=== PATIENT | female | born 1945 | race Caucasian/White ===

== ENCOUNTER 2024-05-15 20:09 | Inpatient (IN) | payer MEDICARE, BC, SELFPAY ==
[2024-05-15 15:57] VITALS: BP 114/81
--- NOTE | 2024-05-15 16:36 | ED.GENMED ---
History of Present Illness
General
Chief Complaint: Skin Problem
Source: patient
Exam Limitations: none
Time Seen by Provider: 05/15/24 16:17
History of Present Illness
History of Present Illness:
See MDM
Past History
Past History
ED Past Medical History: None (MS) and HTN
ED Past Surgical History: None
Social History
Tobacco: Non-smoker
Alcohol: None
Phy Exam
Physical Exam
Physical Exam:
See MDM
Course
Orders/Labs/Results
Orders:
Orders
05/15/24 16:30
Hips, Bilat 2 View W/AP Pelvis [CR Hips ELAN w/wo Pel 2 Vw] Urgent
Comment:
Reason For Exam: b/l hip wound and pain
Include a pelvis x-ray?: No
05/15/24 16:33
Morphine Sulfate 2 mg IV NOW STA
Piperacillin/Tazo 3.375 Gram [Zosyn] 3.375 gram in 50 ml IV NOW
Vancomycin 1 Gram/200 ml [Vancocin] 1 gram in 200 ml IV NOW
05/15/24 16:41
Complete Blood Count/With Diff Urgent
Wound Culture [Wound/Abscess/Other Culture] Urgent
ZEEKIEL Source: Ulcer
Specimen Description:
Date Specimen was Collected: 05/15/24
Time Specimen was Collected: 16:36
Comment: Left hip
05/15/24 18:20
Comprehensive Metabolic Panel Urgent
Abnormal Lab Results
05/15/24 05/15/24
16:41 18:20
WBC 12.2 H 10^3/uL
(4.8-10.8)
RBC 3.81 L 10^6/uL
(4.20-5.40)
Hgb 10.9 L g/dL
(12.0-16.0)
Hct 34.4 L %
(37.0-47.0)
MCHC 31.7 L g/dL
(33.0-37.0)
Plt Count 609 H 10^3/uL
(130-400)
Abs Immat Gran (auto) 0.1 H 10^3/uL
(0-0.05)
Absolute Neuts (auto) 9.8 H 10^3/uL
(1.4-6.5)
Absolute Lymphs (auto) 0.9 L 10^3/uL
(1.2-3.4)
Absolute Monos (auto) 1.2 H 10^3/uL
(0.1-0.6)
Neutrophils % 80.6 H %
(42.2-75.2)
Lymphocytes % 7.7 L %
(20.5-51.1)
Monocytes % 9.5 H %
(1.7-9.3)
Chloride 95 L mmol/L
(98-107)
Carbon Dioxide 36 H mmol/L
(22-30)
BUN 37 H mg/dl
(7-17)
Glucose 122 H mg/dl
(70-99)
Albumin 3.2 L g/dl
(3.5-5.0)
05/15/24 16:41
05/15/24 18:20
Vital Signs
Initial and Last Documented VS:
Initial Vital Signs
Temp Pulse Resp BP Pulse Ox
97.5 F 109 18 114/81 97
05/15/24 15:57 05/15/24 15:57 05/15/24 15:57 05/15/24 15:57 05/15/24 15:57
Last Documented Vital Signs
Temp Pulse Resp BP Pulse Ox
97.7 F 100 19 110/72 90
05/15/24 16:34 05/15/24 18:30 05/15/24 18:30 05/15/24 18:05 05/15/24 18:01
MDM/Problems Addressed
Differential Diagnosis Includes:
HPI and MDM Narrative:
78-year-old female presenting for evaluation of infected pressure ulcers to both hips. Patient is bedbound due to MS. She lives at home with nursing care. The visiting wound nurse evaluated the wounds and indicated that the wounds are getting
worse. The pain is becoming uncontrolled. On exam, she has bilateral pressure ulcers to both hips. The left hip ulceration is cavernous and has thick discharge. The right hip ulceration is larger but more shallow
Given the concern for underlying infection, will start vancomycin and Zosyn. Will give dose of morphine and obtain x-ray to rule out any evidence of osteomyelitis
I did notice rhonchorous breath sounds and daughter states that she has chronic aspiration
Physical exam
General: weak, frail and cachectic
HEENT: protecting airway
Neck: appears supple
CV: No evidence of cyanosis
Resp: No accessory muscle use. Rhonchorous breath sounds throughout
Abd: Non-distended
Extremities: Bilateral ulcerations to both hips with surrounding erythema and discharge
Neuro: alert
Psych: Flat affect
Skin: Intact
Problems Addressed including Acute and Chronic Conditions affecting care:
1. Hip ulcer
Acuity: acute
Prognosis: unstable
Details: Will start antibiotics and obtain x-rays
Updates
Pain is improved on reassessment. X-ray without obvious osteomyelitis.
Differential Diagnosis (but not limited to): Osteomyelitis, pressure ulcer
Testing considered: Blood cultures but she is afebrile
Drug therapy (if applicable): OTC meds, please see d/c instruction regarding Rx drugs
Amount and/or Complexity of Data Reviewed
Clinical info obtained from: Patient. Daughter at bedside states that this is somewhat chronic issue that has worsened recently
External data reviewed: N/A
Labs I independently reviewed (but not limited to): Leukocytosis
Radiology: X-ray independently reviewed: No obvious osteomyelitis noted on bilateral hip x-ray
Pulse Ox: not hypoxic
EKG independently reviewed: N/A
Animal Sticker: N/A
Critical Care: N/A
Risk of Complication:
Social Determinants of health: Good social support
Discussed with other providers: Hospitalist
Escalation of Care includes Admit/Obs: Given the acute on chronic change of the hip ulcerations, will start antibiotics and admit
Occasional wrong word or 'sound a like' substitutions may have occurred due to the inherent limitations of voice recognition software. Read the chart carefully and recognize, using context, where substitutions have occurred.
*Critical Care Note
Total Time (30-74mins, 75-104mins- exclusive of procedures): Not Applicable
ED Attending Note
-
Portions of this chart may have been created with voice recognition software.� Occasional wrong word or��sound alike� substitutions may have occurred due to the inherent limitations of voice recognition software.
Discharge Plan
Departure
Patient Disposition: Admit
Date of Disposition: 05/15/24
Time of Disposition: 19:18
Admit to: Med/Surg
Presentation/result/management discussed w/ accepting MD/DO: Hospitalist
Discharge Problem:
Decubitus ulcer of hip
Prescriptions:
No Action
sennosides [senna] 8.6 mg Tablet
17.2 mg PO BID
ipratropium-albuterol 0.5 mg-3 mg(2.5 mg base)/3 mL Solution For Nebulization
3 ml INHALATION R DAILY
calcium carbonate [Calcium 600] 600 mg calcium (1,500 mg) Tablet
600 mg PO DAILY
amlodipine 10 mg Tablet
10 mg PO DAILY
ibuprofen [Advil] 200 mg Tablet
400 mg PO Q6HPRN PRN (Reason: mild pain)
Santyl 250 unit/gram Ointment
1 applic TOPICAL BID
lorazepam 1 mg Tablet
1 mg PO HS
Patient Comments:
05/15/24: last filled 02/07/24 for 90 tablets
fluoxetine 20 mg Capsule
20 mg PO DAILY
Referrals:
PRIVATE,PHYSICIAN [Family Provider] -
Interventions
Interventions:
*Risk Screen - Suicide Last Done: 05/15/24 15:57
*General Assessment Last Done: 05/15/24 15:57
*Neglect/Abuse Screening Last Done: 05/15/24 15:57
ED- Fall Risk Assessment Last Done: 05/15/24 18:01
*ED COVID-19 Vaccine History Last Done: 05/15/24 15:57
ED-Skin Assessment Last Done: 05/15/24 18:01
Discharge Date and Time
Print Language: MALTESE
[2024-05-15 16:45] VITALS: BMI 12.9
[2024-05-15] MEDS: MORPHINE SULFATE 2 MG IV (16:50)
[2024-05-15] MEDS: ZOSYN 50 IV (16:54)
[2024-05-15 17:28] LABS: % Basophils 0.6 % (0-2); % Eosinophils 1.2 % (0-6); % Immature Granulocytes 0.4 % (0-0.5); % Lymphocytes 7.7 % (20.5-51.1); % Monocytes 9.5 % (1.7-9.3); % Neutrophils 80.6 % (42.2-75.2); Absolute Basophils 0.1 10^3/uL (0-0.2); Absolute Eosinophils 0.2 10^3/uL (0-0.7); Absolute Immature Granulocytes 0.1 10^3/uL (0-0.05); Absolute Lymphocytes 0.9 10^3/uL (1.2-3.4); Absolute Monocytes 1.2 10^3/uL (0.1-0.6); Absolute Neutrophils 9.8 10^3/uL (1.4-6.5); Hematocrit 34.4 % (37.0-47.0); Hemoglobin 10.9 g/dL (12.0-16.0); Mean Corp Hgb Conc. 31.7 g/dL (33.0-37.0); Mean Corpuscular Hgb 28.6 pg (27.0-31.0); Mean Corpuscular Volume 90.3 fL (81.0-99.0); Mean Platelet Volume 9.5 fL (7.4-10.4); Nucleated Red Blood Cells % 0 %; Platelet Count 609 10^3/uL (130-400); Red Blood Cell Count 3.81 10^6/uL (4.20-5.40); White Blood Cell Count 12.2 10^3/uL (4.8-10.8)
[2024-05-15] MEDS: VANCOCIN 200 IV (17:47)
[2024-05-15 18:05] VITALS: BP 110/72
[2024-05-15 18:39] LABS: ALT (SGPT) 20 U/L (0-35); AST (SGOT) 27 U/L (14-36); Albumin 3.2 g/dl (3.5-5.0); Alkaline Phosphatase 102 U/L (38-126); Blood Urea Nitrogen 37 mg/dl (7-17); Calcium 9.8 mg/dl (8.4-10.2); Carbon Dioxide 36 mmol/L (22-30); Chloride 95 mmol/L (98-107); Estimated Creatinine Clearance 43 ml/min; Glucose 122 mg/dl (70-99); Potassium 4.1 mmol/L (3.5-5.1); Sodium 140 mmol/L (135-145); Total Bilirubin 0.3 mg/dl (0.2-1.3); Total Protein 6.7 g/dl (6.3-8.2); eGFR > 60.00
[2024-05-15 20:00] VITALS: BP 101/56
--- NOTE | 2024-05-15 20:00 | HPS.HSE ---
Family Physician
-
Family Physician: PHYSICIAN PRIVATE
Chief Complaint
-
infected sacral wounds
History of Present Illness
78-year-old female past medical history of multiple sclerosis bedbound at baseline, sacral decubitus ulcers, hypertension, emphysema, history of aspiration, active smoker, presenting for infected sacral decubitus ulcers. Patient has 2 ulcers on her
sacrum 1 on the left and 1 on the right which she has had for few months have gotten progressively worse over the past 2 weeks with drainage of foul-smelling purulent drainage. No fevers or chills.
Patient still smokes around half a pack of cigarettes a day. No alcohol use.
Medical History
Past Medical History
Past Medical History: Reports Other ( multiple sclerosis bedbound at baseline, sacral decubitus ulcers, hypertension, emphysema, history of aspiration, active smoker, )
Past Surgical History: Reports Gynocological
Social History
Tobacco: Smoker
Alcohol: None
Drug: None
Family History
Family History: Not pertinent
Allergies / Home Medications
Allergies reflects when Allergies were last updated in [facility].
Home Medications with original date entered in [facility]
Allergy/Medication List:
Allergies
Allergy/AdvReac Type Severity Reaction Status Date / Time
No Known Allergies Allergy Unverified 05/15/24 16:00
Home Medications
amlodipine 10 mg tablet 10 mg PO DAILY 05/15/24
calcium carbonate (Calcium 600) 600 mg PO DAILY 05/15/24
collagenase clostridium histo. 250 unit/gram topical ointment (Santyl) 1 applic topical BID wounds 05/15/24
fluoxetine 20 mg capsule 20 mg PO DAILY 05/15/24
ibuprofen 200 mg tablet (Advil) 400 mg PO Q6HPRN PRN mild pain 05/15/24
ipratropium 0.5 mg-albuterol 3 mg (2.5 mg base)/3 mL nebulization soln 3 ml inhalation R DAILY 05/15/24
lorazepam 1 mg tablet 1 mg PO HS 05/15/24
sennosides 8.6 mg tablet (senna) 17.2 mg PO BID 05/15/24
Review of Systems
-
History Source: Patient
A 12 point ROS was completed and negative except as noted: Yes
Constitutional: Reports No Symptoms
EENT: Reports No Symptoms
Respiratory: Reports No Symptoms
Cardiac: Reports No Symptoms
Abdomen/GI: Reports No Symptoms
: Reports No Symptoms
Musculoskeletal: Reports No Symptoms
Skin: Reports See HPI
Neurological: Reports No Symptoms
Endocrine: Reports No Symptoms
Hematologic/Lymphatic: Reports No Symptoms
Psych: Reports No Symptoms
Physical Exam
Vital Signs
Vital Signs
Temp Pulse Resp BP Pulse Ox
97.7 F 100 19 110/72 90
05/15/24 16:34 05/15/24 18:30 05/15/24 18:30 05/15/24 18:05 05/15/24 18:01
Physical Exam
General: Well Developed, Well Nourished and No Apparent Distress
HEENT: NormoCephalic, Moist mucous membranes and Atraumatic
Respiratory: Clear
Cardiac: S1/S2 and Regular Rhythm; No Murmur or Rub
GI: Soft, Non Tender, Non Distended and Normal Bowel Sounds; No Organomegaly
Rectal: Deferred by Provider
Musculoskeletal: No Clubbing, No Cyanosis and No Edema
Skin: Other (sacral decubitus ulcers ); No Rash
Neuro: Nonfocal/grossly intact
Laboratory Results
-
05/15/24 16:41
05/15/24 18:20
Laboratory Results
Total Bilirubin 0.3 mg/dl (0.2-1.3) 05/15/24 18:20
AST 27 U/L (14-36) 05/15/24 18:20
ALT 20 U/L (0-35) 05/15/24 18:20
Alkaline Phosphatase 102 U/L (38-126) 05/15/24 18:20
Data Reviewed
-
Lab Data: Labs Reviewed by me
Old Records: Reviewed
Impression/Plan
-
IMPRESSION:
PLAN:
# Infected sacral decubitus wounds
-Blood culture pending
-Wound care consulted
-Vancomycin/cefepime
-May require surgical debridement
Multiple sclerosis bedbound at baseline
Essential hypertension
COPD
-Continue DuoNebs
Active smoker
-Nicotine patch
History of aspiration with chronic cough
Anxiety/depression
-Continue fluoxetine
-Continue Ativan
DNR/DNI
DVT prophylaxis�heparin
Regular diet
[2024-05-15 21:31] VITALS: BP 102/66
[2024-05-15 21:32] VITALS: BMI 12.4
[2024-05-15 21:37] VITALS: BP 101/70
--- NOTE | 2024-05-15 21:56 | PHA.VAN.IN ---
Assessment
- Assessment
Renal Function: Unknown baseline
Concomitant Antimicrobials: CEFEPIME
- Previous Dosing Experience
Previous Regimen: NONE
AUC Dosing Plan
- Dosing Variables
Dosing Weight (kg): 54.7
Dosing CrCl (ml/min): 69
Vd coefficient (L/kg): 0.7
- Empiric Dosing
Initial / Loading Dose: 1GM
Maintenance Regimen: 500MG IV Q12H
Estimated AUC (mcg*h/mL): 437
Estimated Peak (mcg*h/mL): 25
Estimated Trough (mcg/ml): 12.7
Estimated Half Life (H): 11.2
Pharmacokinetics Vancomycin I
- -
Patient Age: 78
Patient Sex: Female
Vancomycin Day #: 1
Indication: Skin And Soft Tissue (SACRAL WOUNDS)
Requesting Provider: KYLER
Height / Weight:
Height 5 ft 4 in
Actual Weight 32.659 kg
IBW in k.7
- Vital Signs / Lab Results
Temp Pulse Resp BP Pulse Ox
98.2 F 90 18 101/70 99
05/15/24 21:31 05/15/24 21:37 05/15/24 21:37 05/15/24 21:37 05/15/24 21:37
Lab Results - Hematology
05/15/24
16:41
WBC 12.2 H
Lab Results - Chemistry
05/15/24 05/15/24 05/15/24
16:41 17:46 18:20
BUN Cancelled Cancelled 37 H
Creatinine Cancelled Cancelled 0.6
Estimated Creat Clear Cancelled Cancelled 43
Albumin Cancelled Cancelled 3.2 L
Microbiology Results
05/15/24 16:41 Gram Stain - Preliminary
Ulcer
[2024-05-15] MEDS: SENOKOT 17.2 MG PO (22:11)
[2024-05-15] MEDS: MOTRIN 400 MG PO (22:11)
[2024-05-15] MEDS: HEPARIN 5000 UNITS SC (22:12)
[2024-05-15] MEDS: STERILE WATER FOR INJECTION 10 ML IV (22:12)
[2024-05-15] MEDS: MAXIPIME 1000 MG IV (22:12)
[2024-05-15] MEDS: SANTYL OINTMENT 1 APPLIC TOPICAL (23:09)
[2024-05-15] MEDS: ATIVAN 1 MG PO (23:09)
[2024-05-15 23:26] VITALS: BP 103/61
--- NOTE | 2024-05-16 00:51 | PTCARENOTE ---
Patient states that she lives at home with live-in caregiver; patient reports that her caregiver will be moving out soon; patient has multiple sclerosis and is bedbound at baseline; patient reports that her in February and that he
had been her caregiver.
[2024-05-16] MEDS: VANCOCIN HCL 500 MG 100 IV ×2 (06:18→19:08)
[2024-05-16] MEDS: MOTRIN 400 MG PO ×3 (06:38→20:00)
[2024-05-16 07:00] VITALS: BP 91/62
[2024-05-16] MEDS: DUONEB 3 ML INH (07:46)
[2024-05-16 07:47] VITALS: BP 100/53
[2024-05-16 08:17] LABS: % Basophils 0.7 % (0-2); % Eosinophils 2.4 % (0-6); % Immature Granulocytes 0.6 % (0-0.5); % Lymphocytes 13.1 % (20.5-51.1); % Monocytes 8.5 % (1.7-9.3); % Neutrophils 74.7 % (42.2-75.2); Absolute Basophils 0.1 10^3/uL (0-0.2); Absolute Eosinophils 0.2 10^3/uL (0-0.7); Absolute Immature Granulocytes 0.1 10^3/uL (0-0.05); Absolute Lymphocytes 1.2 10^3/uL (1.2-3.4); Absolute Monocytes 0.8 10^3/uL (0.1-0.6); Absolute Neutrophils 6.7 10^3/uL (1.4-6.5); Hematocrit 30.1 % (37.0-47.0); Hemoglobin 9.8 g/dL (12.0-16.0); Mean Corp Hgb Conc. 32.6 g/dL (33.0-37.0); Mean Corpuscular Hgb 29.1 pg (27.0-31.0); Mean Corpuscular Volume 89.3 fL (81.0-99.0); Mean Platelet Volume 9.5 fL (7.4-10.4); Nucleated Red Blood Cells % 0 %; Platelet Count 559 10^3/uL (130-400); Red Blood Cell Count 3.37 10^6/uL (4.20-5.40); Red Cell Dist. Width 12.9 % (11.5-14.5)
[2024-05-16] MEDS: PROZAC 20 MG PO (09:07)
[2024-05-16] MEDS: HEPARIN 5000 UNITS SC ×2 (09:08→19:55)
[2024-05-16] MEDS: SENOKOT 17.2 MG PO ×2 (09:08→19:55)
[2024-05-16 09:10] LABS: ALT (SGPT) 17 U/L (0-35); AST (SGOT) 23 U/L (14-36); Albumin 3.1 g/dl (3.5-5.0); Alkaline Phosphatase 100 U/L (38-126); Blood Urea Nitrogen 29 mg/dl (7-17); Calcium 9.8 mg/dl (8.4-10.2); Carbon Dioxide 29 mmol/L (22-30); Chloride 97 mmol/L (98-107); Estimated Creatinine Clearance 41 ml/min; Glucose 96 mg/dl (70-99); Potassium 3.7 mmol/L (3.5-5.1); Sodium 138 mmol/L (135-145); Total Bilirubin 0.3 mg/dl (0.2-1.3); Total Protein 6.4 g/dl (6.3-8.2); eGFR > 60.00
[2024-05-16] MEDS: NICODERM TRANSDERMAL 7 MG TRANSDERM (09:10)
[2024-05-16] MEDS: SANTYL OINTMENT 1 APPLIC TOPICAL ×2 (09:12→19:54)
--- NOTE | 2024-05-16 09:14 | WOUNDNOTE ---
L HIP (undermines up to 5cm)
--- NOTE | 2024-05-16 09:15 | WOUNDNOTE ---
[facility] RN note: Patient admitted with infected hip pressure injuries. Patient lives alone and is current with VN. Patient stated her passed recently. Patient stated she sleeps in a double bed at home.
See H&P for complete history.
PMH: MS, bedbound, HTN, aspiration, COPD, smoker, cachexia.
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 R hip covered with brown/black eschar detached along distal lateral edge. +Necrotic odor. L hip pink/yellow slough undermines up to 5cm.
Hip Xrays negative for OM. +Local erythema around wounds. Sacral small stage 1 pressure injury. R lateral ankle blanchable red. R medial knee blanchable mild red. Patient's Le's contracted.
Appetite: poor.
Pressure redistribution devices in place: Static air overlay mattress. Air chair cushions.
Plan: Bilateral hip dressings changed. Protective silicone border foam applied to sacrum and R lateral ankle. Foot Waffle boots applied. Patient incontinent of urine. Louann care given and patient turned to R semi side lying position with help from
SHANNEN Hinds. Foot Waffle boots applied. Pillow between knees. Patient at risk for non healing wounds, additional pressure injuries d/t poor nutrition, LE contracture and cachexia.
Updated and confirmed orders with Dr. Ernst who plans to consult general surgeon to evaluate for wound debridement. Discussed with ALEX Thao.
Care plan to be updated and will follow as needed.
Note to case management of equipment requested for discharge: Hospital bed with air mattress. Discussed with TERRY Campoverde.
Recommend follow up at wound care center upon discharge.
[2024-05-16] MEDS: OSCAL CAL 500 500 MG PO (09:16)
[2024-05-16] MEDS: STERILE WATER FOR INJECTION 10 ML IV ×2 (09:17→21:17)
[2024-05-16] MEDS: MAXIPIME 1000 MG IV ×2 (09:17→21:16)
--- NOTE | 2024-05-16 09:27 | PHA.VAN.FU ---
Vancomycin Assessment / Plan
- Assessment
Renal Function: Stable (BUN trending down)
WBC's are: WNL
In the past 24 hrs, patient has been: Afebrile
Concomitant Antimicrobials: cefepime
- Dosing Plan
Continue: Vanc 500mg Q12H
Dosing Comments: dosing based off IBW for BMI < 20
- Monitoring Plan
No level(s) ordered at this time: consider levels in next few days
- Follow Up
Pharmacy will continue to follow.
Vancomycin Follow UP
- -
Patient Age: 78
Patient Sex: Female
Vancomycin Day #: 2
Indication: Skin And Soft Tissue
Requesting Provider: Dr. Nicolas
Pertinent Antimicrobial Allergies:
NKDA
Height / Weight:
Height 5 ft 4 in
Actual Weight 32.659 kg
IBW in k.7
Pertinent Past Medical History: BMI ~12.4, MS (bedbound)
- Vital Signs / Lab Results
Temp Pulse Resp BP Pulse Ox
97.4 F 87 18 100/53 91
05/16/24 07:47 05/16/24 07:53 05/16/24 07:53 05/16/24 07:47 05/16/24 07:53
Lab Results - Hematology
05/15/24 05/16/24
16:41 06:41
WBC 12.2 H 9.0
Lab Results - Chemistry
05/15/24 05/15/24 05/15/24
16:41 17:46 18:20
BUN Cancelled Cancelled 37 H
Creatinine Cancelled Cancelled 0.6
Estimated Creat Clear Cancelled Cancelled 43
Albumin Cancelled Cancelled 3.2 L
05/16/24
06:41
BUN 29 H
Creatinine 0.6
Estimated Creat Clear 41
Albumin 3.1 L
Microbiology Results
05/15/24 16:41 Gram Stain - Preliminary
Ulcer
[2024-05-16] MEDS: NORVASC 10 MG PO (09:51)
[2024-05-16 10:57] VITALS: BP 105/62
--- NOTE | 2024-05-16 11:09 | W.PN.HOSP.TC ---
Today's Communication/Plan
-
May need debridement
IV abx
Await culture data
dietary eval
Assessment / Plan
Assessment / Plan
# Hip/sacral decubitus wounds suspected infection
-Blood culture pending
-Vancomycin/cefepime
-Surgery eval if debridement required
-wound care following
-leukocytosis resolved.
-ID for abx management as pt with MS/Chronic wound
Multiple sclerosis bedbound at baseline
-not on any termination clerk medication
-PT/OT
Essential hypertension
-Cont norvasc. BP controlled.
COPD
-Continue DuoNebs
Active smoker
-Nicotine patch
-counseled on cessation and significant delay in wound healing if continues to smoke.
History of aspiration with chronic cough
Anxiety/depression
-Continue fluoxetine
-Continue Ativan
Protein calorie malnutrition likely due to chronic illness
-Dietary eval.
-liberalize diet
DNR/DNI
DVT prophylaxis�heparin
Anticipated Discharge: > 48 hours
Subjective/Interval History
-
Date of Service: May 16, 2024
denies back or hip pain
continues to smoke
Objective Data
-
Labs:
Laboratory Results
05/16/24
06:41
WBC 9.0
Hgb 9.8 L
Hct 30.1 L
Plt Count 559 H
Sodium 138
Potassium 3.7
Chloride 97 L
Carbon Dioxide 29
BUN 29 H
Creatinine 0.6
Glucose 96
Calcium 9.8
Total Bilirubin 0.3
AST 23
ALT 17
Alkaline Phosphatase 100
Vital Signs:
Vital Signs
Temp Pulse Resp BP Pulse Ox
97.4 F 90 16 105/62 99
05/16/24 10:57 05/16/24 10:57 05/16/24 10:57 05/16/24 10:57 05/16/24 10:57
Physical Exam
-
General: Appears Chronically Ill and Cachectic
HEENT: Normocephalic, Atraumatic and Moist Mucous Membranes
Respiratory: Clear to Auscultation
Cardiac: Regular Rhythm and S1/S2; Negative Murmur, Rub or Gallop
GI: Soft, Nontender, Nondistended and Normal Bowel Sounds; Negative Organomegaly
Rectal: Deferred by Provider
Musculoskeletal: No Clubbing, No Cyanosis and No Edema
Skin: Other (hip wound ulcer noted ); Negative Rash
Neuro: Awake, No Motor Deficits and Nonfocal/Grossly Intact
Psych: Calm
Data Reviewed
-
Total Time Spent with Patient (in minutes): 56
--- NOTE | 2024-05-16 11:40 | CON.GS ---
Consultation
-
Requesting Provider: parvez
Performing Provider: adolfo
Reason for Consultation: pressure ulcers to bilateral hips
Medical History
-
Chief Complaint: pressure wounds
History of Present Illness:
78F bedbound 2/2 MS with pressure wounds to bilateral hips in the greater trochanter area. She normally lives at home with home VN. VN felt the wounds were progressing and had concern for infection. The patient reports increasing pain a/w the
wounds. She is a daily smoker. She denies f/c/n/v. She is presently comfortable, eating micronesian toast.
Past Medical History
Past Medical History: Other (as per HPI, and hypertension, emphysema, history of aspiration)
Past Surgical History: Reviewed & Noncontributory
Social History
Tobacco: Smoker
Alcohol: None
Drug: None
Family History
Family History: Reviewed & Noncontributory
Allergies / Home Medications
Allergy/AdvReac Type Severity Reaction Status Date / Time
No Known Allergies Allergy Unverified 05/15/24 16:00
�Medication �Instructions �Recorded �Confirmed �Type
amlodipine 10 mg tablet 10 mg PO DAILY 05/15/24 05/15/24 History
calcium carbonate (Calcium 600) 600 mg PO DAILY 05/15/24 05/15/24 History
collagenase clostridium histo. 250 1 applic topical BID wounds 05/15/24 05/15/24 History
unit/gram topical ointment (Santyl)
fluoxetine 20 mg capsule 20 mg PO DAILY 05/15/24 05/15/24 History
ibuprofen 200 mg tablet (Advil) 400 mg PO Q6HPRN PRN mild pain 05/15/24 05/15/24 History
ipratropium 0.5 mg-albuterol 3 mg 3 ml inhalation R DAILY 05/15/24 05/15/24 History
(2.5 mg base)/3 mL nebulization
soln
lorazepam 1 mg tablet 1 mg PO HS 05/15/24 05/15/24 History
sennosides 8.6 mg tablet (senna) 17.2 mg PO BID 05/15/24 05/15/24 History
Review of Systems
-
A 10 point review of systems was completed, and was negative except as per HPI.
Physical Exam
Vital Signs
Temp Pulse Resp BP Pulse Ox
97.4 F 90 16 105/62 99
05/16/24 10:57 05/16/24 10:57 05/16/24 10:57 05/16/24 10:57 05/16/24 10:57
05/15/24 05/16/24 05/17/24
06:59 06:59 06:59
Actual Weight 32.659 kg
Body Mass Index (BMI) 12.4
Lab Results
05/16/24 06:41
05/16/24 06:41
WBC 9.0 10^3/uL (4.8-10.8) 05/16/24 06:41
Hgb 9.8 g/dL (12.0-16.0) L 05/16/24 06:41
Hct 30.1 % (37.0-47.0) L 05/16/24 06:41
Plt Count 559 10^3/uL (130-400) H 05/16/24 06:41
Abs Immat Gran (auto) 0.1 10^3/uL (0-0.05) H 05/16/24 06:41
Neutrophils % 74.7 % (42.2-75.2) 05/16/24 06:41
Physical Exam
General: Other (frail, cachectic)
Skin: Other (left hip pressure wound examined, tunneling and necrotic muscle noted with mild foul odor, there is tenderness, no purulence though the wound was recently cleaned and dressed; right hip exam deferred 2/2 pt position and eating)
Neuro: AO x 3
Psych: Calm
Data Reviewed
-
Radiology: Image Personally Visualized and interpreted and Report Reviewed by me
Medical Tests (Nuc Med, Echo etc): Other (wound care images reviewed, right hip ulcer with apparent eschar)
Assessment / Plan
-
78F with bilateral greater trochanteric pressure wounds
Right hip wound with eschar, left hip wound with tunneling, necrosis
AFVSS, leukocytosis and mild tachycardia present on on admit have resolved
XR without evidence of osteo
Pt will benefit from OR debridement of her wounds.
Tentative plan for OR tomorrow.
NPO at midnight.
Agree with cont IV abx
All other care as per primary team.
Risk factors: cachexia, frailty, bedbound status, COPD, smoking
[2024-05-16 12:51] VITALS: BMI 12.4
--- NOTE | 2024-05-16 13:14 | W.PN.UPDATE ---
Update Note
Progress Note Update
I personally performed a history and physical exam of the patient and discussed management with the resident. I reviewed the resident's separately documented note and agree with the documented findings and plan of care HPI/CC with the following
additions/corrections:
CC: infected sacral wounds
HPI: Ms Soto is a 78 year old female with MS bedbound at baseline with known sacral decubiti, emphysema with active smoking, profound cachexia presenting here for a several month history of two ulcers on the sacrum 1 on the left and one of the
right with progressive increase in size, purulent drainage and increasing pain. No fevers or chills
Not currently on treatment for MS.
Since arrival here she has been afebrile, bp overall stable, wbc initially 12.2 now 9.0, hgb 9.8, plt 559, L shift was initially present now resolved, eos are present, na 138, cr 0.6, t bili 0.3, ast 23, alt 17, alk phos 100,
Past Medical History
multiple sclerosis bedbound at baseline, sacral decubitus ulcers, hypertension, emphysema, history of aspiration, active smoker
Past Surgical History: R THR
Social History
Tobacco: Smoker
Alcohol: None
Drug: None
Family History
Family History: Not pertinent
Allergies
NKDA
Home Medications: reviewed
ROS: as documented by resident
Vital Signs
Temp Pulse Resp BP Pulse Ox
97.7 F 100 19 110/72 90
05/15/24 16:34 05/15/24 18:30 05/15/24 18:30 05/15/24 18:05 05/15/24 18:01
Physical Exam
General: d No Apparent Distress
Respiratory: Clear to auscultation BL
Cardiac: S1/S2 and Regular Rhythm; No Murmur or Rub
GI: Soft, Non Tender, Non Distended and Normal Bowel Sounds
Musculoskeletal: No Edema
Skin: R hip wound with eschar, L hip wound with purulence, granulation tissue
Labs: reviewed, as per HPI
Assessment And Plan
Chronic Sacral pressure wounds: R hip wound with eschar, L hip wound with purulence, granulation tissue
S/p R THR
MS with Functional paraplegia
Empyhsema
Profound Cachexia
- wound cx: gram stain many gpcs, many gnr, few gpr; culture proteus thus far - expect polymicrobial results
- follow up OR note post debridement, ideally aerobic
- CXR
- agree with vanc/cefepime
- add metronidazole
- patient profoundly cachectic with significant risk for ongoing nonhealing; additionally given her inability to consistently offload the wounds, she is unlikely to be a candidate for reconstruction or ostomy
Recommend hospice given frailty, profound cachexia, chronic/progressive wounds and history of aspiration
AW
--- NOTE | 2024-05-16 13:20 | CON.ID ---
Consultation
-
Date/Time Consultation Requested: 05/16/2024, 11:16 AM.
Date/Time Consultation Performed: 05/16/2024, 1:20 PM
Requesting Provider: Gamaliel Ernst MD
Performing Provider: Tayler Wheeler for Adelita Zaidi MD
Reason for Consultation: Sacral decubitus ulcer-infected.
Chief Complaint / Past History
Chief Complaint
Foul-smelling discharge and worsening pain of decubitus ulcers.
History of Present Illness
28-year-old female with PMHx significant for multiple sclerosis, bedbound for few years, decubitus ulcers, hypertension, emphysema, history of aspiration, active smoker presents to the hospital with chief complaint of progressively worsening pain
and drainage of foul-smelling purulent discharge from the sacral decubitus ulcers. She complains of being tired, loss of appetite and 8/10 pain. Denies having fever, chills, chest pain, heart racing, loss of consciousness.
Of note she has a visiting wound care nurse that is wound care dressing 3-4 times a week and a 24-hour home health aide. Wound care nurse recommended patient to be taken to the hospital due to the worsening pain and foul-smelling purulent discharge
over the last 2 weeks from her sacral decubitus ulcers. 2 ulcers on bilateral hips were noted by wound care which were photographed. Upon arrival to the hospital she was afebrile with stable blood pressure no tachycardia and no hypotension,
leukocytosis with WBC count at 12 .2 with left shift, now 9 with resolving left shift, normocytic anemia and reactive thrombocytosis.
Patient still smokes around half a pack of cigarettes a day (was smoking about 1 pack a day until few months ago). No alcohol use.
Past History
Past Medical History: Other (Multiple sclerosis bedbound at baseline, sacral decubitus ulcers, hypertension, emphysema, history of aspiration, active smoker, )
Past Surgical History: Other (Gynecological surgery, right hip ORIF.)
Allergy History:
No Known Allergies Allergy (Unverified 05/15/24 16:00)
Medications Reviewed: Yes
Current Antibiotics:
Cefepime 1000 mg IV every 12 hourly
Vancomycin 500 mg IV every 12 hourly.
Social History
Tobacco: Smoker
Alcohol: Occasional
Drug: None
Personal:
Living: With Family
Employment: Retired
Family History
Family History: Not Pertinent
Review of Systems
Review of Systems
General: Change in Appetite and Other (fatigue)
Cardiovascular: Negative Chest Pain or Dyspnea
Respiratory: Negative Dyspnea or Cough
Gasteroenterology: Weight Loss
Genital / Urological: Negative Dysuria
Endocrine: Weight Change and Fatigue
Neurological: Negative Headache or Dizziness
Vital Signs
Temp Pulse Resp BP Pulse Ox
97.4 F 90 16 105/62 99
05/16/24 10:57 05/16/24 10:57 05/16/24 10:57 05/16/24 10:57 05/16/24 10:57
Physical Exam
Physical Exam
Constitutional: Cachetic (Severe cachexia with contractures.)
Cardiovascular: Regular Rate and S1/S2; Negative Murmur, Rub or Gallop
Pulmonary: Clear; Negative Wheezes, Rales or Rhonchi
Gastrointestinal: Soft, Non Tender and Normal Bowel Sounds
Extremities: Negative Edema
Skin: Warm and Ulcers (Left hip wound-stage IV. About 7 into 7 cm ulcer with surrounding erythema, undermined edges, mild granulation tissue, and obvious purulence noted.Right hip wound-unstageable, about 6 into 8 cm, eschar present.)
Neurological: AO x 3
Psychological: Calm
Lab / Diagnostic Study Results
05/16/24 06:41
05/16/24 06:41
Abs Immat Gran (auto) 0.1 10^3/uL (0-0.05) H 05/16/24 06:41
Absolute Neuts (auto) 6.7 10^3/uL (1.4-6.5) H 05/16/24 06:41
Absolute Lymphs (auto) 1.2 10^3/uL (1.2-3.4) 05/16/24 06:41
Absolute Monos (auto) 0.8 10^3/uL (0.1-0.6) H 05/16/24 06:41
Absolute Basos (auto) 0.1 10^3/uL (0-0.2) 05/16/24 06:41
Immature Gran % 0.6 % (0-0.5) H 05/16/24 06:41
Neutrophils % 74.7 % (42.2-75.2) 05/16/24 06:41
Lymphocytes % 13.1 % (20.5-51.1) L 05/16/24 06:41
Monocytes % 8.5 % (1.7-9.3) 05/16/24 06:41
Eosinophils % 2.4 % (0-6) 05/16/24 06:41
Basophils % 0.7 % (0-2) 05/16/24 06:41
Microbiology Results
Micro:
05/15/24 16:41 Wound Culture - Preliminary
Ulcer Proteus species
Gram Stain - Preliminary
05/16/24 04:08 MRSA Screen - Pending
Nose
X-ray hip-05/11/2024-
1. Large soft tissue wounds lateral to the greater trochanters of both proximal femurs.
2. No radiographic evidence for acute osteomyelitis.
3. Previous ORIF of a right proximal femoral fracture with a short stem gamma nail.
4. Diffuse bone demineralization.
5. Severe right-sided facet joint arthrosis at L4/L5 and L5/S1.
Gram stain from wound culture-few gram-positive cocci, many gram-negative rods, few gram-positive rods.
Assessment / Plan
Assessment-
Multiple sclerosis with paraplegia-not on any treatment.
Chronic bilateral sacral pressure wounds-right hip with eschar and left hip with purulence. S/p ORIF of the right hip.
Cachexia-BMI 12.4
COPD/emphysema.
Wound cultures polymicrobial-predominantly Proteus,few gram-positive cocci, many gram-negative rods, few gram-positive rods.
Plan-
Surgery consulted and on board, planning for wound debridement tomorrow.
Currently patient is on Cefepime 1000 mg IV every 12 hourly and vancomycin 500 mg IV every 12 hourly. Add metronidazole for anaerobic coverage.
Will plan for an MRI based on the OR wound debridement note by surgeon.
Given her ORIF in the hip, profound cachexia, inability to offload the pressure on wounds from her underlying paraplegia she is not a great candidate for reconstruction or osteomyelitis management hence hospice recommendation should be explored.
Care Review
Plan reviewed with: Physician
[2024-05-16 15:00] VITALS: BP 87/59
--- NOTE | 2024-05-16 16:11 | CM ---
Patient seen at bedside.
Dx: infected sacral decubitus ulcers
PMH: MS, HTN, emphysema, +smoker
IA completed. CM called daughter to obtain further information and left message.
States she lives at home alone that her . Andree MARTIN was current prior to hospitalization along with caregivers.
Patient is bedbound
CM await call from daughter Catalina Reeves -[phone] to discuss plan.
PLAN: OR tomorrow for debridement
[2024-05-16 17:03] VITALS: BP 107/67
[2024-05-16] MEDS: FLAGYL 500 MG 100 IV (17:09)
[2024-05-16] MEDS: DAKIN'S SOLUTION 0.125% 1/4 STRENGTH 473 ML TOPICAL (19:54)
[2024-05-16] MEDS: ATIVAN 1 MG PO (21:16)
[2024-05-16] MEDS: TYLENOL 1000 MG PO (22:32)
[2024-05-16 23:43] VITALS: BP 92/57
[2024-05-17] VITALS (15 sets, daily range): BP systolic 86–140; BP diastolic 55–85
[2024-05-17] MEDS: FLAGYL 500 MG 100 IV ×3 (01:20→17:30)
[2024-05-17] MEDS: VANCOCIN HCL 500 MG 100 IV ×2 (05:24→18:34)
[2024-05-17 05:32] LABS: % Basophils 0.4 % (0-2); % Eosinophils 1.6 % (0-6); % Immature Granulocytes 0.5 % (0-0.5); % Monocytes 7.6 % (1.7-9.3); % Neutrophils 80.9 % (42.2-75.2); Absolute Basophils 0.1 10^3/uL (0-0.2); Absolute Eosinophils 0.2 10^3/uL (0-0.7); Absolute Immature Granulocytes 0.1 10^3/uL (0-0.05); Absolute Lymphocytes 1.1 10^3/uL (1.2-3.4); Absolute Monocytes 0.9 10^3/uL (0.1-0.6); Absolute Neutrophils 9.4 10^3/uL (1.4-6.5); Hematocrit 28.6 % (37.0-47.0); Hemoglobin 9.2 g/dL (12.0-16.0); Mean Corp Hgb Conc. 32.2 g/dL (33.0-37.0); Mean Corpuscular Hgb 27.8 pg (27.0-31.0); Mean Corpuscular Volume 86.4 fL (81.0-99.0); Mean Platelet Volume 9.5 fL (7.4-10.4); Nucleated Red Blood Cells % 0 %; Platelet Count 559 10^3/uL (130-400); Red Blood Cell Count 3.31 10^6/uL (4.20-5.40); Red Cell Dist. Width 12.9 % (11.5-14.5); White Blood Cell Count 11.7 10^3/uL (4.8-10.8)
[2024-05-17 05:55] LABS: Blood Urea Nitrogen 25 mg/dl (7-17); Calcium 9.5 mg/dl (8.4-10.2); Carbon Dioxide 31 mmol/L (22-30); Chloride 99 mmol/L (98-107); Estimated Creatinine Clearance 41 ml/min; Glucose 80 mg/dl (70-99); Potassium 3.5 mmol/L (3.5-5.1); Sodium 139 mmol/L (135-145); eGFR > 60.00
[2024-05-17] MEDS: DUONEB 3 ML INH (07:20)
--- NOTE | 2024-05-17 07:48 | W.PN.HOSP.TC ---
Today's Communication/Plan
-
OR for debridement
Broad spectrum abx
pain control
Appreciate GS/ID recs
Assessment / Plan
Assessment / Plan
# Chronic Hip/sacral decubitus wound suspected infected
-Blood culture neg so far
-wound culture with proteus.
-Vancomycin/cefepime and flagyl
-Surgery eval -plan for debridement today.
-wound care following
-Pain control.
-ID for abx management as pt with MS/Chronic wound
Multiple sclerosis bedbound at baseline/paraplegic
-not on any halfway medication
-PT/OT
Essential hypertension
-Cont norvasc. BP controlled.
COPD
-Continue DuoNebs
Active smoker
-Nicotine patch
-counseled on cessation and significant delay in wound healing if continues to smoke.
History of aspiration with chronic cough
Anxiety/depression
-Continue fluoxetine
-Continue Ativan
Protein calorie malnutrition likely due to chronic illness
-Dietary eval.
-liberalize diet
DNR/DNI
DVT prophylaxis�heparin
Dispo-probably will require SNF on discharge.
Anticipated Discharge: > 48 hours
Subjective/Interval History
-
Date of Service: May 17, 2024
states of sacral pain
Objective Data
-
Labs:
Laboratory Results
05/17/24
04:34
WBC 11.7 H
Hgb 9.2 L
Hct 28.6 L
Plt Count 559 H
Sodium 139
Potassium 3.5
Chloride 99
Carbon Dioxide 31 H
BUN 25 H
Creatinine 0.6
Glucose 80
Calcium 9.5
Vital Signs:
Vital Signs
Temp Pulse Resp BP Pulse Ox
97 F 69 16 120/73 97
05/17/24 07:00 05/17/24 07:23 05/17/24 07:23 05/17/24 07:00 05/17/24 07:23
I&O
05/16/24 05/17/24 05/18/24
06:59 06:59 06:59
Intake Total 1360 / 1360
Balance 1360 / 1360
Physical Exam
-
General: Appears Chronically Ill and Cachectic
HEENT: Normocephalic, Atraumatic and Moist Mucous Membranes
Respiratory: Clear to Auscultation
Cardiac: Regular Rhythm and S1/S2; Negative Murmur, Rub or Gallop
GI: Soft, Nontender, Nondistended and Normal Bowel Sounds; Negative Organomegaly
Rectal: Deferred by Provider
Musculoskeletal: No Clubbing, No Cyanosis and No Edema
Skin: Other (hip wound ulcer noted ); Negative Rash
Neuro: Awake, No Motor Deficits and Nonfocal/Grossly Intact
Psych: Calm
--- NOTE | 2024-05-17 08:15 | W.PN.SURGUPD ---
Surgical Update
Surgical Update
pt seen in followup this AM
confirmed plan for OR today with pt - on add on schedule
debridement b/l ischial decubitus ulcers. anticipated procedure reviewed in detail with pt including operative technique, alternative tx options, benefits and risks such as but not limited to bleeding requiring transfusion, infectious related
complications and wound healing. any of the patients concerns or questions were fully addressed and informed consent was obtained.
--- NOTE | 2024-05-17 08:29 | W.PN.ID1 ---
Addendum entered and electronically signed by Adelita Claudio MD 05/17/24 17:03:
Non- billable note
I was not able to evaluate the patient, she was in the OR during multiple visits to the floor. I reviewed the resident�s note and agree with findings and plan as documented in the resident�s note with the following additions/corrections:
SOAP
S: no events overnight - for the OR today
O:
vitals reviewed, stable
Physical Exam
Rounded on patient three times including checking PACU - not available
Labs:
wbc 11.7
hgb 9.2
plt 559
L shift noted
cr 0.6
wound cx: prelim: proteus
MRSA screen: negative
CXR: my read: hyperinflated lungs, no nodules or infiltrates
Assessment And Plan
Chronic Sacral pressure wounds: R hip wound with eschar, L hip wound with purulence, granulation tissue
S/p R THR
MS with Functional paraplegia
Empyhsema
Profound Cachexia
- wound cx: gram stain many gpcs, many gnr, few gpr; culture proteus thus far - expect polymicrobial results
- follow up OR note post debridement, ideally aerobic
- CXR
- agree with vanc/cefepime/metronidazole
- patient profoundly cachectic with significant risk for ongoing nonhealing; additionally given her inability to consistently offload the wounds, she is unlikely to be a candidate for reconstruction or ostomy
Recommend hospice given frailty, profound cachexia, chronic/progressive wounds and history of aspiration; alternatively, outpatient follow up with plastic surgery - again, doubt she is a surgical candidate
Nonbillable note - was unable to locate patient during rounds
AW
Original Note:
Date of Service
Date of Service: May 17, 2024
Today's Communication
Wound debridement in the p.m.
Continue cefepime, vancomycin, metronidazole.
Assessment / Plan
Assessment-
Objective findings-
Leukocytosis with left mqgcp-ejplwxsgih-35.2-9.0 (05/16/2024)-11.7 (05/17/2024).
Hemoglobin-9.2, normocytic anemia, reactive thrombocytosis-platelet count 559, BMP-within normal limits
Multiple sclerosis with paraplegia-not on any treatment.
Chronic bilateral sacral pressure wounds-right hip with eschar and left hip with purulence. S/p ORIF of the right hip.
Cachexia-BMI 12.4
COPD/emphysema.
Wound cultures polymicrobial-predominantly Proteus,few gram-positive cocci, many gram-negative rods, few gram-positive rods.
Plan-
Surgery consulted and on board, wound debridement today in the p.m.
Currently patient is on Cefepime 1000 mg IV every 12 hourly-day 2 and vancomycin 500 mg IV every 12 hourly-day 1.metronidazole 500 mg 3 times daily-day 1 for anaerobic coverage.
Will plan for an MRI based on the OR wound debridement note by surgeon.
Given her ORIF in the hip, profound cachexia, inability to offload the pressure on wounds from her underlying paraplegia she is not a great candidate for reconstruction or osteomyelitis management hence hospice recommendation should be explored.
Chief Complaint
-: Other (foul smelling purulent draining pressure ulcers X 2 weeks.)
Subjective / Review of Systems
Tired, no appetite.
Review of Systems: No Fever, No Chills, No Headache, No Chest Pain, No Palpitations, No Abdominal Pain, No Nausea and No Dysuria
Vital Signs / Physical Exam
Vital Signs
Vital Signs
Temp Pulse Resp BP Pulse Ox
97 F 69 16 120/73 97
05/17/24 07:00 05/17/24 07:23 05/17/24 07:23 05/17/24 07:00 05/17/24 07:23
Physical Exam
Constitutional: Cachetic
Cardiovascular: Regular Rate and S1/S2; Negative Murmur, Rub or Gallop
Pulmonary: Clear; Negative Wheezes, Rales or Rhonchi
Gastrointestinal: Soft, Non Tender, Non Distended and Normal Bowel Sounds
Extremities: Negative Edema
Skin: Warm and Ulcers (Stage IV left hip wound, unstageable right hip wound.)
Neurological: AO x 3
Psychological: Calm
Objective Data
Lab Data
Lab Results
05/17/24 04:34
05/17/24 04:34
Estimated Creat Clear 41 ml/min 05/17/24 04:34
Total Bilirubin 0.3 mg/dl (0.2-1.3) 05/16/24 06:41
AST 23 U/L (14-36) 05/16/24 06:41
ALT 17 U/L (0-35) 05/16/24 06:41
Alkaline Phosphatase 100 U/L (38-126) 05/16/24 06:41
Most recent labs reviewed.
Microbiology: Report Reviewed
Micro Results:
05/15/24 16:41 Wound Culture - Preliminary
Ulcer Proteus species
Gram Stain - Preliminary
05/16/24 04:08 MRSA Screen - Pending
Nose
X-ray hip-05/11/2024-
1. Large soft tissue wounds lateral to the greater trochanters of both proximal femurs.
2. No radiographic evidence for acute osteomyelitis.
3. Previous ORIF of a right proximal femoral fracture with a short stem gamma nail.
4. Diffuse bone demineralization.
5. Severe right-sided facet joint arthrosis at L4/L5 and L5/S1.
Gram stain from wound culture-few gram-positive cocci, many gram-negative rods, few gram-positive rods.
[2024-05-17] MEDS: HEPARIN SC (08:50)
[2024-05-17] MEDS: NORVASC PO (08:51)
[2024-05-17] MEDS: SENOKOT PO (08:51)
[2024-05-17] MEDS: OSCAL CAL 500 PO (08:51)
[2024-05-17] MEDS: PROZAC PO (08:51)
[2024-05-17] MEDS: NICODERM TRANSDERMAL 7 MG TRANSDERM (08:52)
[2024-05-17] MEDS: DAKIN'S SOLUTION 0.125% 1/4 STRENGTH 473 ML TOPICAL (08:52)
[2024-05-17] MEDS: SANTYL OINTMENT 1 APPLIC TOPICAL (08:52)
[2024-05-17] MEDS: STERILE WATER FOR INJECTION 10 ML IV ×2 (09:04→21:09)
[2024-05-17] MEDS: MAXIPIME 1000 MG IV ×2 (09:04→21:09)
[2024-05-17] MEDS: MORPHINE SULFATE 1 MG IV (09:15)
--- NOTE | 2024-05-17 11:13 | PN.CDI ---
CDI
- -
CDI:
Physician Documentation Request
Admit Date: 05/15/24 20:09
Dear Doctor Klever,
Please review the following and provide your response in the progress notes.
Clinical Indicators:
Pt admitted with Hip/sacral decubitus wounds suspected infection.
05/16 Progress note: 'Protein calorie malnutrition likely due to chronic illness.'
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 Pt unsure of weight history. During visit RD able to visulize apparent ribs, temporal wasting, fat loss over tricepts, orbital area sunken in.... Skin: unstageable R hip, stage 4 L
hip. CBW: 72 lbs BMI 12.4 underweight range, 05/15....
With < 75% estimated needs > 1 month and observed muscle and fat wasting pt meets AND/ASPEN criteria for severe protein calorie malnutrition of chronic illness.'
If possible, please provide in your progress notes, additional specificity regarding the severity of the malnutrition:
Severe
Other (please specify)
[place] Criteria (ACP Hospitalist 2017)
2 or more criteria must be present for either
non severe or severe malnutrition
Note that the criteria differs related to the
presence of an acute or chronic illness
Chronic Illness
Energy Intake Non Severe: <75% for >1 month
Severe: <75% for >1 month
Weight Loss Non Severe: 5% over 1 month
7.5% over 3 months
10% over 6 months
20% over 1 year
Severe: >5% over 1 month
>7.5% over 3 months
>10% over 6 months
>20% over 1 year
Body Fat Non Severe: Mild Loss
Severe: Severe Loss
Muscle Mass Non Severe: Mild Loss
Severe: Severe Loss
Additional criteria that can be used to Determine if Mild or Moderate Malnutrition (Merck Manual 2018)
Use of terms such as suspected, likely, concern for, or probable (associated with a specific diagnosis that is being evaluated, monitored, or treated as if it exists) are acceptable and can be coded in the inpatient setting, when documented at the
time of discharge.
Thank you,
Tierra Ritter RN, BSN
CDI Specialist
Available via [employer] text
Please use your independent medical judgment in providing your response.
[2024-05-17] MEDS: MORPHINE SULFATE 3 MG IV (11:41)
--- NOTE | 2024-05-17 12:37 | CM ---
Addendum entered by Amrita Diana 05/17/24 14:23:
Financial forms for [place] [facility] [place] given to daughter
Original Note:
Spoke with daughter Catalina. Patient going to OR today for debridement
States patient lives alone, had 14/03 caregivers & recently passed.
Discussed options of placement for rehab to daughter states potentially skilled nursing care.
Referral to [facility]
PLAN: OR today, SNF
--- NOTE | 2024-05-17 14:00 | PTCARENOTE ---
Patient sent to OR for b/l hip debridement. Report given to RN. Patient updated at bedside.
--- NOTE | 2024-05-17 14:52 | W.SUR.PREOP ---
Pre-Operative Surgical Note
-
I have examined this patient prior to the performance of the scheduled procedure.
The patient's condition is unchanged from the time of the current History and
Physical and the patient is able to undergo the scheduled procedure.
--- NOTE | 2024-05-17 15:09 | PHA.VAN.FU ---
Vancomycin Assessment / Plan
- Assessment
Renal Function: Stable
WBC's are: Trending Up
In the past 24 hrs, patient has been: Afebrile
Concomitant Antimicrobials: cefepime, metronidazole
- Dosing Plan
Continue: Vanc 500mg Q12H based on IBW
- Monitoring Plan
Trough Level: 05/18 05:30
Patient for OR this evening - will hold off on obtaining peak/trough as may be difficult to ensure optimal timing of peak
Will obtain trough in AM to ensure regimen non-toxic as patient unlikely to follow population PK
However, since patient unlikely to follow population PK with BMI, will likely eventually need peak/trough to calculate patient-specific PK and more accurately assess regimen
- Follow Up
Pharmacy will continue to follow.
Vancomycin Follow UP
- -
Patient Age: 78
Patient Sex: Female
Vancomycin Day #: 3
Indication: Skin And Soft Tissue
Requesting Provider: Dr. Nicolas / González
Pertinent Antimicrobial Allergies:
NKDA
Height / Weight:
Height 5 ft 4 in
Actual Weight 32.659 kg
IBW in k.7
Pertinent Past Medical History: BMI ~12.4, MS (bedbound)
- Vital Signs / Lab Results
Temp Pulse Resp BP Pulse Ox
97 F 69 16 140/85 97
05/17/24 07:00 05/17/24 07:23 05/17/24 07:23 05/17/24 11:50 05/17/24 07:23
Lab Results - Hematology
05/15/24 05/16/24 05/17/24
16:41 06:41 04:34
WBC 12.2 H 9.0 11.7 H
Lab Results - Chemistry
05/15/24 05/15/24 05/15/24
16:41 17:46 18:20
BUN Cancelled Cancelled 37 H
Creatinine Cancelled Cancelled 0.6
Estimated Creat Clear Cancelled Cancelled 43
Albumin Cancelled Cancelled 3.2 L
05/16/24 05/17/24
06:41 04:34
BUN 29 H 25 H
Creatinine 0.6 0.6
Estimated Creat Clear 41 41
Albumin 3.1 L
Microbiology Results
05/15/24 16:41 Wound Culture - Preliminary
Ulcer Proteus mirabilis
Gram Stain - Preliminary
05/16/24 04:08 MRSA Screen - Final
Nose No Methicillin Resistant Staphylococcus aureus isolated.
--- NOTE | 2024-05-17 16:32 | W.IMMPOSTOP ---
Addendum entered and electronically signed by Leeroy Bellamy MD 05/17/24 16:54:
#[id number]
Original Note:
Surgical Immed Post Op Note
-
Primary Surgeon: Josesito
Assisting Surgeon: None
Pre-op Diagnosis: b/l greater trochanteric pressure ulcers
Post-op Diagnosis: stage IV b/l greater trochanteric pressure ulcers
Procedure Performed: sharp excisional debridement b/l greater trochanteric pressure ulcers
Anesthesia Type: GETA
Specimen / Cultures: none
Estimated Blood Loss: 8mL
Complications: none immediate
Operative Findings: Stage IV left greater trochanteric pressure ulcer with exposed tendon and humerus as well as surrounding musculature. 3 cm x 2 cm x 5 cm undermining and 1 cm deep
Stage IV right greater trochanteric pressure ulcer with exposed fascia, muscle/tendon. 6.2 x 7.5 cm and 0.5 cm deep. No undermining.
Sharp excisional debridement with electrocautery and 15 blade at both sites to remove majority of necrotic tissue/eschar/fibrous buildup.
Plan: Local wound care going forward. Given patient's advanced MS and comorbidities unfortunately do not anticipate healing potential and would therefore not further debride again even if there was recurrent deterioration of wound as is anticipated.
--- NOTE | 2024-05-17 17:56 | PTCARENOTE ---
Report received from OR. Patient back in room. VSS. Dinner tray ordered.
[2024-05-17 20:45] LABS: Hepatitis C Antibody Negative (Negative)
[2024-05-17] MEDS: SENOKOT 17.2 MG PO (21:00)
[2024-05-17] MEDS: HEPARIN 5000 UNITS SC (21:08)
[2024-05-17] MEDS: ATIVAN 1 MG PO (21:09)
[2024-05-17] MEDS: DESENEX/MITRAZOL/ZEASORB 1 APPLIC TOPICAL (21:22)
[2024-05-17] MEDS: DAKIN'S SOLUTION 0.125% 1/4 STRENGTH TOPICAL (21:44)
[2024-05-17] MEDS: SANTYL OINTMENT TOPICAL (21:44)
[2024-05-18] VITALS (8 sets, daily range): BP systolic 92–133; BP diastolic 57–77; PULSE 84–88; O2SAT 88–95
[2024-05-18] MEDS: FLAGYL 500 MG 100 IV ×3 (01:23→18:25)
[2024-05-18] MEDS: MORPHINE SULFATE 2 MG IV (03:59)
[2024-05-18 07:08] LABS: % Basophils 0.1 % (0-2); % Immature Granulocytes 0.6 % (0-0.5); % Lymphocytes 4.4 % (20.5-51.1); % Monocytes 3.5 % (1.7-9.3); % Neutrophils 91.4 % (42.2-75.2); Absolute Immature Granulocytes 0.1 10^3/uL (0-0.05); Absolute Lymphocytes 0.6 10^3/uL (1.2-3.4); Absolute Monocytes 0.5 10^3/uL (0.1-0.6); Absolute Neutrophils 13.2 10^3/uL (1.4-6.5); Hematocrit 27.2 % (37.0-47.0); Mean Corp Hgb Conc. 33.1 g/dL (33.0-37.0); Mean Corpuscular Hgb 29.5 pg (27.0-31.0); Mean Corpuscular Volume 89.2 fL (81.0-99.0); Mean Platelet Volume 9.5 fL (7.4-10.4); Nucleated Red Blood Cells % 0 %; Platelet Count 530 10^3/uL (130-400); Red Blood Cell Count 3.05 10^6/uL (4.20-5.40); Red Cell Dist. Width 12.8 % (11.5-14.5); White Blood Cell Count 14.4 10^3/uL (4.8-10.8)
[2024-05-18 07:27] LABS: Vancomycin Trough 12.1 ug/ml (5-20)
[2024-05-18 07:31] LABS: Blood Urea Nitrogen 20 mg/dl (7-17); Calcium 9.2 mg/dl (8.4-10.2); Carbon Dioxide 31 mmol/L (22-30); Chloride 100 mmol/L (98-107); Estimated Creatinine Clearance 41 ml/min; Glucose 101 mg/dl (70-99); Potassium 3.9 mmol/L (3.5-5.1); Sodium 139 mmol/L (135-145); eGFR > 60.00
[2024-05-18] MEDS: VANCOCIN HCL 500 MG 100 IV ×2 (07:33→20:31)
[2024-05-18] MEDS: DUONEB 3 ML INH (07:35)
--- NOTE | 2024-05-18 08:02 | PHA.VAN.FU ---
Vancomycin Assessment / Plan
- Assessment
Renal Function: Stable
WBC's are: Trending Up
In the past 24 hrs, patient has been: Afebrile
Concomitant Antimicrobials: cefepime, metronidazole
- Assessment - Trough Based Monitoring
Trough Value: 12.1
Level Today was: Appropriate
Level Comments: drawn ~11.5H after 4th maintenance dose
- Dosing Plan
Continue: Vanc 500mg Q12H
- Monitoring Plan
No level(s) ordered at this time: consider obtaining peak/trough in next few days
Trough appropriate to continue present dosing
Patient does not follow population PK due to BMI < 20
Patient may have additional accumulation
Consider repeat level with peak in next few days
- Follow Up
Pharmacy will continue to follow.
Vancomycin Follow UP
- -
Patient Age: 78
Patient Sex: Female
Vancomycin Day #: 4
Indication: Skin And Soft Tissue
Requesting Provider: Dr. Nicolas / González
Pertinent Antimicrobial Allergies:
NKDA
Height / Weight:
Height 5 ft 4 in
Actual Weight 32.659 kg
IBW in k.7
Pertinent Past Medical History: BMI ~12.4, MS (bedbound)
- Vital Signs / Lab Results
Temp Pulse Resp BP Pulse Ox
97.6 F 88 12 133/77 90
05/18/24 03:23 05/18/24 07:42 05/18/24 07:42 05/18/24 03:23 05/18/24 07:42
Lab Results - Hematology
05/15/24 05/16/24 05/17/24
16:41 06:41 04:34
WBC 12.2 H 9.0 11.7 H
05/18/24
05:50
WBC 14.4 H
Lab Results - Chemistry
05/15/24 05/15/24 05/15/24
16:41 17:46 18:20
BUN Cancelled Cancelled 37 H
Creatinine Cancelled Cancelled 0.6
Estimated Creat Clear Cancelled Cancelled 43
Albumin Cancelled Cancelled 3.2 L
05/16/24 05/17/24 05/18/24
06:41 04:34 05:50
BUN 29 H 25 H 20 H
Creatinine 0.6 0.6 0.6
Estimated Creat Clear 41 41 41
Albumin 3.1 L
Microbiology Results
05/15/24 16:41 Wound Culture - Preliminary
Ulcer Proteus mirabilis
Gram Stain - Preliminary
05/16/24 04:08 MRSA Screen - Final
Nose No Methicillin Resistant Staphylococcus aureus isolated.
Therapeutic Drug Monitoring
Vancomycin Trough 12.1 ug/ml (5-20) 05/18/24 05:53
--- NOTE | 2024-05-18 08:27 | W.PN.ID1 ---
Addendum entered and electronically signed by Adelita Claudio MD 05/18/24 17:49:
I saw and evaluated the patient. I reviewed the resident�s note and agree with findings and plan as documented in the resident�s note.
SOAP
S: taken to the OR last night
No other events
O:
vitals reviewed, stable
Physical Exam
Constitutional: severe cachexia, nad
Cardiovascular: Regular Rate
Pulmonary: no increased work of breathing
Gastrointestinal: Non Distended
Neurological: Awake and Alert
Skin: deferred dressing take down
Psychological: Calm
Labs:
wbc 14.4
hgb 9.0
plt 530
L shift increased
cr 0.6
wound cx: prelim: proteus
MRSA screen: negative
CXR: my read: hyperinflated lungs, no nodules or infiltrates
Assessment And Plan
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
Left: exposed tendon and humerus and muscle
Right: exposed fascia, muscle, tender
note h/o ORIF on the right - however, no exposed hardwear at this time
S/p R THR
MS with Functional paraplegia
Empyhsema
Profound Cachexia
- wound cx: gram stain many gpcs, many gnr, few gpr; culture proteus thus far - expect polymicrobial results
- agree with vanc/cefepime/metronidazole for now
- patient profoundly cachectic with significant risk for ongoing nonhealing; additionally given her inability to consistently offload the wounds, she is unlikely to be a candidate for reconstruction or ostomy
Recommend hospice given frailty, profound cachexia, chronic/progressive wounds and history of aspiration; alternatively, outpatient follow up with plastic surgery - again, doubt she is a surgical candidate. Note that general surgery shares my
concerns for nonhealing
Original Note:
Date of Service
Date of Service: May 18, 2024
Today's Communication
Continue Zosyn.
Hospice conversations with family.
Assessment / Plan
Assessment-
Objective findings-
Leukocytosis with left bblnw-yzviuoivhs-42.2-9.0 (05/16/2024)-11.7 (05/17/2024).
Hemoglobin-9.2, normocytic anemia, reactive thrombocytosis-platelet count 559, BMP-within normal limits
Multiple sclerosis with paraplegia-not on any treatment.
Chronic bilateral sacral pressure wounds-right hip with eschar and left hip with purulence. S/p ORIF of the right hip.
Cachexia-BMI 12.4
COPD/emphysema.
Wound cultures polymicrobial-predominantly Proteus,few gram-positive cocci, many gram-negative rods, few gram-positive rods.
Operative findings-stage IV left greater trochanteric pressure ulcer with exposed tendon and humerus. Stage IV right greater trochanteric pressure ulcer with exposed fascia muscle and tendon.
Plan-
Surgery consulted and on board, wound debridement today in the p.m yesterday. Possible osteomyelitis on the left side, hardware metal present on the right side. Will have hospice discussions with the family. If family wants to pursue with further
evaluation and treatment, will consider getting MRI of the hips.
Currently patient is on Cefepime 1000 mg IV every 12 hourly-day 3 and vancomycin 500 mg IV every 12 hourly-day 2.metronidazole 500 mg 3 times daily-day 2 for anaerobic coverage. Discontinue vancomycin.
Will plan for an MRI based on the OR wound debridement note by surgeon.
Given her ORIF in the hip, profound cachexia, inability to offload the pressure on wounds from her underlying paraplegia she is not a great candidate for reconstruction or osteomyelitis management hence hospice recommendation should be explored.
Chief Complaint
-: Other (foul smelling purulent draining pressure ulcers X 2 weeks.)
Subjective / Review of Systems
Patient states that she feels much better than yesterday. She is awake and alert, denies being in pain or discomfort.
Review of Systems: No Fever, No Chills, No Headache, Cough (Baseline, productive.), No Chest Pain, No Palpitations, No Nausea and No Dysuria
Vital Signs / Physical Exam
Vital Signs
Vital Signs
Temp Pulse Resp BP Pulse Ox
97.7 F 88 12 101/60 90
05/18/24 07:10 05/18/24 07:42 05/18/24 07:42 05/18/24 07:10 05/18/24 07:42
Physical Exam
Constitutional: Comfortable and Cachetic (Severe)
Cardiovascular: Regular Rate and S1/S2; Negative Murmur, Rub or Gallop
Pulmonary: Clear; Negative Wheezes, Rales or Rhonchi
Gastrointestinal: Soft, Non Tender and Non Distended
Extremities: Negative Edema
Neurological: Awake and Alert
Psychological: Calm
Objective Data
Lab Data
Lab Results
05/18/24 05:50
05/18/24 05:50
Estimated Creat Clear 41 ml/min 05/18/24 05:50
Total Bilirubin 0.3 mg/dl (0.2-1.3) 05/16/24 06:41
AST 23 U/L (14-36) 05/16/24 06:41
ALT 17 U/L (0-35) 05/16/24 06:41
Alkaline Phosphatase 100 U/L (38-126) 05/16/24 06:41
Most recent labs reviewed.
Chest X-Ray: Image Reviewed and Report Reviewed
Microbiology: Report Reviewed
Micro Results:
05/15/24 16:41 Wound Culture - Preliminary
Ulcer Proteus mirabilis
Gram Stain - Preliminary
05/16/24 04:08 MRSA Screen - Final
Nose No Methicillin Resistant Staphylococcus aureus isolated.
X-ray hip-05/11/2024-
1. Large soft tissue wounds lateral to the greater trochanters of both proximal femurs.
2. No radiographic evidence for acute osteomyelitis.
3. Previous ORIF of a right proximal femoral fracture with a short stem gamma nail.
4. Diffuse bone demineralization.
5. Severe right-sided facet joint arthrosis at L4/L5 and L5/S1.
Gram stain from wound culture-few gram-positive cocci, many gram-negative rods, few gram-positive rods.
Other: Image Reviewed
[2024-05-18] MEDS: OSCAL CAL 500 500 MG PO (08:37)
[2024-05-18] MEDS: PROZAC 20 MG PO (08:38)
[2024-05-18] MEDS: SANTYL OINTMENT 1 APPLIC TOPICAL ×2 (08:39→20:37)
[2024-05-18] MEDS: SENOKOT 17.2 MG PO ×2 (08:39→20:38)
[2024-05-18] MEDS: HEPARIN 5000 UNITS SC ×2 (08:40→20:38)
[2024-05-18] MEDS: NICODERM TRANSDERMAL 7 MG TRANSDERM (08:40)
[2024-05-18] MEDS: NORVASC 10 MG PO (08:41)
[2024-05-18] MEDS: DAKIN'S SOLUTION 0.125% 1/4 STRENGTH 1 ML TOPICAL (08:43)
--- NOTE | 2024-05-18 11:31 | PTOTSP ---
SPEECH THERAPY SWALLOW EVALUATION:
Patient exhibits clinical signs of oropharyngeal dysphagia, likely chronic related to Multiple Sclerosis, COPD, and generalized weakness/deconditioning, and acutely exacerbated by recent anesthesia s/p debridement of b/l pressure ulcers. Patient
with history of aspiration/choking, though unclear on details. Patient currently exhibiting signs of aspiration with thin liquids and soft solids; Endorsed globus sensation with soft-solids. Patient endorsed history of VSE though unclear of details
of when/where or recommendations. Patient remains at HIGH RISK for aspiration and related complications at this time given suboptimal positioning and signs of aspiration at bedside. Patient will likely need instrumental assessment of swallowing
(VSE) to further assess swallow physiology; However, at this time, pt is not able to tolerate positioning requirements for VSE due to pain/body habitus. Recommend temporary NPO except for necessary medications crushed in puree and small sips of
Mildly-thick liquid water with 1:[address] to follow, re-assess patient in 24 hours, determine indication for VSE when/if appropriate and able to tolerate, and continue to provide education regarding aspiration risks and precautions. Discussed
recommendations with pt/Dr. Ernst.
RECOMMEND:
1) temporary NPO
2) necessary medications crushed in puree
3) small sips of Mildly-thick liquid water
4) ST to follow, re-assess patient in 24 hours, determine indication for VSE when/if appropriate and able to tolerate
--- NOTE | 2024-05-18 11:37 | VATNOTE ---
During routine assessment, IV site noted to be red and swollen, pt reports discomfort. IV site in R wrist discontinued, heat applied.
[2024-05-18] MEDS: D5LR 1000 IV (11:49)
[2024-05-18] MEDS: STERILE WATER FOR INJECTION 10 ML IV ×2 (11:51→21:49)
[2024-05-18] MEDS: MAXIPIME 1000 MG IV ×2 (11:51→21:49)
--- NOTE | 2024-05-18 12:08 | W.PN.HOSP.TC ---
Today's Communication/Plan
-
IV abx
Daily speech eval
Pain control
Assessment / Plan
Assessment / Plan
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
-Blood culture neg so far
-wound culture with proteus.
-Vancomycin/cefepime and flagyl
-s/p sharp excisional debridement b/l greater trochanteric pressure ulcers on 05/18
-wound care following
-Pain control.
-OP finding noted.
-Significantly low chance of wound healing due to bedbound status. Explained to patient.
-ID for abx management as pt with MS/Chronic wound
Multiple sclerosis bedbound at baseline/paraplegic
-not on any termite treater medication
-PT/OT
Dysphagia likely 2/2 MS vs. deconditioning vs. chronic aspiration
-NPO for now
-daily speech eval
-IVF started.
Essential hypertension
-Cont norvasc. BP controlled.
COPD
-Continue DuoNebs
Active smoker
-Nicotine patch
-counseled on cessation and significant delay in wound healing if continues to smoke.
History of aspiration with chronic cough
Anxiety/depression
-Continue fluoxetine
-Continue Ativan
Severe Protein calorie malnutrition likely due to chronic illness
-Dietary eval.
-liberalize diet
DNR/DNI
DVT prophylaxis�heparin
Dispo-probably will require SNF on discharge.
d/w with ID
residential prognosis poor
Anticipated Discharge: > 48 hours
Subjective/Interval History
-
Date of Service: May 18, 2024
Earlier today pt with increasing amount of cough with po intake
Objective Data
-
Labs:
Laboratory Results
05/18/24
05:50
WBC 14.4 H
Hgb 9.0 L
Hct 27.2 L
Plt Count 530 H
Sodium 139
Potassium 3.9
Chloride 100
Carbon Dioxide 31 H
BUN 20 H
Creatinine 0.6
Glucose 101 H
Calcium 9.2
Vital Signs:
Vital Signs
Temp Pulse Resp BP Pulse Ox
97.5 F 91 16 92/58 92
05/18/24 11:55 05/18/24 11:55 05/18/24 11:55 05/18/24 11:55 05/18/24 12:01
I&O
05/17/24 05/18/24 05/19/24
06:59 06:59 06:59
Intake Total 1360 / 1360 670 / 670 100 / 100
Balance 1360 / 1360 670 / 670 100 / 100
Physical Exam
-
General: Appears Chronically Ill and Cachectic
HEENT: Normocephalic, Atraumatic and Moist Mucous Membranes
Respiratory: Clear to Auscultation
Cardiac: Regular Rhythm and S1/S2; Negative Murmur, Rub or Gallop
GI: Soft, Nontender, Nondistended and Normal Bowel Sounds; Negative Organomegaly
Rectal: Deferred by Provider
Musculoskeletal: No Clubbing, No Cyanosis and No Edema
Skin: Other (hip wound ulcer noted ); Negative Rash
Neuro: Awake, No Motor Deficits and Nonfocal/Grossly Intact
Psych: Calm
--- NOTE | 2024-05-18 12:28 | W.PN.GS2 ---
Addendum entered and electronically signed by John Woodson MD 05/18/24 13:16:
Wounds evaluated at bedside together with wound care team
No new necrosis, eschar or purulence. There is foul odor to the left hip wound.
Dressings changed. No plans for further surgical interventio at this time.
Left hip will benefit from dakins to help control odor, right hip will likely benefit from santyl when evidence of an eschar begins to appear.
Advised pt of poor prognosis, unlikely she will heal these wounds.
Pls call with ?s
Original Note:
Today's Communication / Plan
-
local wound care
Assessment / Plan
-
78F POD1 s/p debridement of bilateral greater trochanteric pressure wounds in the OR
Stable, no complaints today
Will coordinate a wound exam with wound care team later today
Likely nothing further to offer from surgical standpoint, local wound care, offloading, nutritional support
Poor prognosis
Subjective Data
-
Date of Service: May 18, 2024
AFVSS, no complaints
Objective Data
-
Intake and Output
05/17/24 05/18/24 05/19/24
06:59 06:59 06:59
Intake Total 1360 / 1360 670 / 670 100 / 100
Balance 1360 / 1360 670 / 670 100 / 100
Intake:
Oral fluids 960 / 960 120 / 120
IV fluids (Total) 100 / 100
normosol 100 / 100
IV piggybacks 400 / 400 450 / 450 100 / 100
Other:
Number of approximated MODERATE 1
amounts of urine
How many times incontinent 2 2
MODERATE amount urine
How many times incontinent 1 1
SATURATED amount urine
Vital Signs
Temp Pulse Resp BP Pulse Ox
97.5 F 91 16 92/58 92
05/18/24 11:55 05/18/24 11:55 05/18/24 11:55 05/18/24 11:55 05/18/24 12:01
Lab Results
05/18/24 05:50
05/18/24 05:50
Calcium 9.2 mg/dl (8.4-10.2) 05/18/24 05:50
Total Bilirubin 0.3 mg/dl (0.2-1.3) 05/16/24 06:41
AST 23 U/L (14-36) 05/16/24 06:41
ALT 17 U/L (0-35) 05/16/24 06:41
Alkaline Phosphatase 100 U/L (38-126) 05/16/24 06:41
Total Protein 6.4 g/dl (6.3-8.2) 05/16/24 06:41
Albumin 3.1 g/dl (3.5-5.0) L 05/16/24 06:41
Physical Exam
-
Deferred
--- NOTE | 2024-05-18 14:18 | WOUNDNOTE ---
[facility] RN NOTE: Patient visited today s/p debridement of bilateral stage 4 PI on 05/17. Dr. Woodson present during assessment. Left hip tunneling wound appears with less yellow necrotic debris when compared to pictures from 05/16. Right hip with some
black eschar and 90% clean wound bed. Both wounds cleaned and packed with Dakins moistened gauze. Bilateral heels intact, air boots applied. Sacrum intact, blanchable red. Patient reports poor appetite and a dietary consult has been ordered. Patient
was positioned in a left semi-side lying position. Wound orders updated. ALEX Desai given update. Will continue to follow as needed.
--- NOTE | 2024-05-18 15:36 | CM ---
Patient seen at bedside with daughter.
Patient wounds debrided yesterday.
Cont with IV abx, speech eval, pain control
Daughter will be touring SNF. Potential LTC. Referral in [facility]
Financial forms given previously to [facility]
PLAN: SNF
[2024-05-18] MEDS: DAKIN'S SOLUTION 0.125% 1/4 STRENGTH 473 ML TOPICAL (20:39)
[2024-05-18] MEDS: ATIVAN 1 MG PO (21:53)
[2024-05-19] MEDS: FLAGYL 500 MG 100 IV ×3 (01:42→19:15)
[2024-05-19] MEDS: VANCOCIN HCL 500 MG 100 IV ×2 (05:49→17:53)
[2024-05-19 07:10] VITALS: BP 123/72
[2024-05-19] MEDS: DUONEB 3 ML INH ×2 (07:23→19:36)
[2024-05-19 08:24] LABS: % Basophils 0.5 % (0-2); % Eosinophils 1.3 % (0-6); % Immature Granulocytes 1.1 % (0-0.5); % Lymphocytes 11.8 % (20.5-51.1); % Monocytes 7.8 % (1.7-9.3); % Neutrophils 77.5 % (42.2-75.2); Absolute Basophils 0.1 10^3/uL (0-0.2); Absolute Eosinophils 0.1 10^3/uL (0-0.7); Absolute Immature Granulocytes 0.1 10^3/uL (0-0.05); Absolute Lymphocytes 1.3 10^3/uL (1.2-3.4); Absolute Monocytes 0.9 10^3/uL (0.1-0.6); Absolute Neutrophils 8.4 10^3/uL (1.4-6.5); Hematocrit 28.5 % (37.0-47.0); Hemoglobin 9.4 g/dL (12.0-16.0); Mean Corpuscular Hgb 28.2 pg (27.0-31.0); Mean Corpuscular Volume 85.6 fL (81.0-99.0); Mean Platelet Volume 9.3 fL (7.4-10.4); Nucleated Red Blood Cells % 0 %; Platelet Count 577 10^3/uL (130-400); Red Blood Cell Count 3.33 10^6/uL (4.20-5.40); Red Cell Dist. Width 12.8 % (11.5-14.5); White Blood Cell Count 10.8 10^3/uL (4.8-10.8)
[2024-05-19 09:00] LABS: Blood Urea Nitrogen 10 mg/dl (7-17); Calcium 9.2 mg/dl (8.4-10.2); Carbon Dioxide 30 mmol/L (22-30); Chloride 99 mmol/L (98-107); Estimated Creatinine Clearance 41 ml/min; Glucose 96 mg/dl (70-99); Potassium 3.1 mmol/L (3.5-5.1); Sodium 139 mmol/L (135-145); eGFR > 60.00
--- NOTE | 2024-05-19 09:48 | PHA.VAN.FU ---
Vancomycin Assessment / Plan
- Assessment
Renal Function: SCR Decreasing (0.6>0.5)
WBC's are: Trending Down (14.4>10.8)
In the past 24 hrs, patient has been: Afebrile
Concomitant Antimicrobials: Cefepime, Metronidazole
- Dosing Plan
Continue: Vancomycin 500mg IV Q12hrs
- Monitoring Plan
No level(s) ordered at this time: Will order levels according to vancomycin dosing protocol
- Follow Up
Pharmacy will continue to follow.
Vancomycin Follow UP
- -
Patient Age: 78
Patient Sex: Female
Vancomycin Day #: 5
Indication: Skin And Soft Tissue
Requesting Provider: Dr. Nicolas / González
Pertinent Antimicrobial Allergies:
NKDA
Height / Weight:
Height 5 ft 4 in
Actual Weight 32.659 kg
IBW in k.7
Pertinent Past Medical History: BMI ~12.4, MS (bedbound)
- Vital Signs / Lab Results
Temp Pulse Resp BP Pulse Ox
97.7 F 82 16 118/71 93
05/18/24 23:33 05/19/24 07:25 05/19/24 07:25 05/18/24 23:33 05/19/24 07:25
Lab Results - Hematology
05/17/24 05/18/24 05/19/24
04:34 05:50 07:48
WBC 11.7 H 14.4 H 10.8
Lab Results - Chemistry
05/17/24 05/18/24 05/19/24
04:34 05:50 07:48
BUN 25 H 20 H 10
Creatinine 0.6 0.6 0.5 L
Estimated Creat Clear 41 41 41
Microbiology Results
05/15/24 16:41 Wound Culture - Preliminary
Ulcer Proteus mirabilis
Gram Stain - Preliminary
05/16/24 04:08 MRSA Screen - Final
Nose No Methicillin Resistant Staphylococcus aureus isolated.
Therapeutic Drug Monitoring
Vancomycin Trough 12.1 ug/ml (5-20) 05/18/24 05:53
[2024-05-19] MEDS: D5LR 1000 IV (09:57)
[2024-05-19] MEDS: HEPARIN 5000 UNITS SC ×2 (09:58→20:39)
[2024-05-19] MEDS: DAKIN'S SOLUTION 0.125% 1/4 STRENGTH 1 ML TOPICAL (09:58)
[2024-05-19] MEDS: SANTYL OINTMENT 1 APPLIC TOPICAL ×2 (09:59→20:39)
[2024-05-19] MEDS: NICODERM TRANSDERMAL 7 MG TRANSDERM (09:59)
--- NOTE | 2024-05-19 10:09 | PTCARENOTE ---
pt right wrist red, but patient reports no pain. refused tx (heat, elevation), states it is feeling much better. pt resting, call king in reach
--- NOTE | 2024-05-19 10:41 | W.PN.HOSP.TC ---
Addendum entered and electronically signed by Gamaliel Ernst MD 05/19/24 14:03:
update daughter over the phone in details.
Original Note:
Today's Communication/Plan
-
speech eval
IVF in the interim
ID recs
cont with broad spectrum abx
Assessment / Plan
Assessment / Plan
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
-Blood culture neg so far
-wound culture with proteus.
-Vancomycin/cefepime and flagyl
-s/p sharp excisional debridement b/l greater trochanteric pressure ulcers on 05/18
-wound care following
-Pain control.
-OR finding noted.
-Significantly low chance of wound healing due to bedbound status. Explained to patient and patient daughter.
-ID for abx management as pt with MS/Chronic wound. Unclear if plan for MRI.
Multiple sclerosis bedbound at baseline/paraplegic
-not on any snf medication
-PT/OT
Dysphagia likely 2/2 MS vs. deconditioning vs. chronic aspiration
-NPO for now
-daily speech eval
-IVF started.
Acute hypoxic respiratory insufficiency likely secondary to aspiration pneumonia/pneumonitis
-Currently NPO. And already on antibiotics.
Essential hypertension
-Cont norvasc. BP controlled.
COPD
-Continue DuoNebs
Active smoker
-Nicotine patch
-counseled on cessation and significant delay in wound healing if continues to smoke.
History of aspiration with chronic cough
Anxiety/depression
-Continue fluoxetine
-Continue Ativan
Severe Protein calorie malnutrition likely due to chronic illness
-Dietary eval.
-liberalize diet once can tolerat po
DNR/DNI
DVT prophylaxis�heparin
Dispo-probably will require SNF on discharge.
[facility] prognosis poor
Updated daughter over the phone in details on 05/18/2024. Discussed hospitalization/management so far. Did recommend hospice however seems not interested at this point. May need to reintroduce depending on how patient does with swallow eval.
Anticipated Discharge: > 48 hours
Subjective/Interval History
-
Date of Service: May 19, 2024
remains npo
states of mild pain at wound site
Objective Data
-
Labs:
Laboratory Results
05/19/24
07:48
WBC 10.8
Hgb 9.4 L
Hct 28.5 L
Plt Count 577 H
Sodium 139
Potassium 3.1 L
Chloride 99
Carbon Dioxide 30
BUN 10
Creatinine 0.5 L
Glucose 96
Calcium 9.2
Vital Signs:
Vital Signs
Temp Pulse Resp BP Pulse Ox
97.7 F 82 16 123/72 93
05/18/24 23:33 05/19/24 07:25 05/19/24 07:25 05/19/24 07:10 05/19/24 07:25
I&O
05/18/24 05/19/24 05/20/24
06:59 06:59 06:59
Intake Total 670 / 670 1280 / 1280
Balance 670 / 670 1280 / 1280
Physical Exam
-
General: Appears Chronically Ill and Cachectic
HEENT: Normocephalic, Atraumatic and Moist Mucous Membranes
Respiratory: Clear to Auscultation
Cardiac: Regular Rhythm and S1/S2; Negative Murmur, Rub or Gallop
GI: Soft, Nontender, Nondistended and Normal Bowel Sounds; Negative Organomegaly
Rectal: Deferred by Provider
Musculoskeletal: No Clubbing, No Cyanosis and No Edema
Skin: Other (hip wound ulcer noted ); Negative Rash
Neuro: Awake, No Motor Deficits and Nonfocal/Grossly Intact
Psych: Calm
Data Reviewed
-
Total Time Spent with Patient (in minutes): 56
[2024-05-19] MEDS: PROZAC 20 MG PO (11:00)
[2024-05-19] MEDS: SENOKOT 17.2 MG PO ×2 (11:00→20:39)
[2024-05-19] MEDS: NORVASC 10 MG PO (11:01)
[2024-05-19] MEDS: OSCAL CAL 500 500 MG PO (11:01)
[2024-05-19] MEDS: MAXIPIME 1000 MG IV ×2 (11:01→22:01)
[2024-05-19] MEDS: STERILE WATER FOR INJECTION 10 ML IV ×2 (11:02→22:01)
--- NOTE | 2024-05-19 14:53 | PTOTSP ---
Speech Pathology
Patient continues to exhibit clinical signs of oropharyngeal dysphagia, likely chronic related to Multiple Sclerosis, COPD, and generalized weakness/deconditioning, and acutely exacerbated by recent anesthesia s/p debridement of b/l pressure ulcers.
History of aspiration/choking, and currently exhibiting signs of aspiration with thin liquids. Denied globus sensation will all textures trialed this date.
Per daughter, previous video swallow study at [facility] in January with recommendations for NPO x PEG tube. Daughter and patient state they �understand� the risks of aspiration; however, opted for comfort feeds within the home.
Recommend:
1. Trial of puree (IDDSI 4) and mildly thick liquids (IDDSI 2) via CUP sips
2. Meds in puree or with mildly thick liquid
3. Safe swallowing strategies: upright 90 degrees with meals, oral care 3-5x day, small bites, single sips, discontinue PO if increased s/s of aspiration or penetration arise
4. Aspiration precautions
5. W[employer] service to follow up and assess tolerance of current diet level, provide education regarding aspiration risks and precautions, determine need for repeat VSE, and provide dysphagia tx as needed
[2024-05-19 15:05] VITALS: BP 117/77
--- NOTE | 2024-05-19 16:32 | W.PN.ID1 ---
Date of Service
Date of Service: May 19, 2024
Today's Communication
final day of antibiotics
Assessment / Plan
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
Left: exposed tendon and humerus and muscle
Right: exposed fascia, muscle, tender
note h/o ORIF on the right - however, no exposed hardwear at this time
S/p R THR
MS with Functional paraplegia
Emphysema
Profound Cachexia
- wound cx: gram stain many gpcs, many gnr, few gpr; culture proteus thus far - expect polymicrobial results
- final day of vanc/cefepime/metronidazole
- patient profoundly cachectic with significant risk for ongoing nonhealing; additionally given her inability to consistently offload the wounds, she is unlikely to be a candidate for reconstruction or ostomy
Chief Complaint
-: Other (foul smelling purulent draining pressure ulcers X 2 weeks.)
Subjective / Review of Systems
afebrile
no overnight events
Vital Signs / Physical Exam
Vital Signs
Vital Signs
Temp Pulse Resp BP Pulse Ox
98.4 F 90 16 117/77 93
05/19/24 15:05 05/19/24 15:05 05/19/24 15:05 05/19/24 15:05 05/19/24 15:05
Physical Exam
Constitutional: No Acute Distress and Comfortable
Cardiovascular: Regular Rate
Pulmonary: Non Labored
Gastrointestinal: Non Distended
Neurological: Awake
Objective Data
Lab Data
Lab Results
05/19/24 07:48
05/19/24 07:48
Estimated Creat Clear 41 ml/min 05/19/24 07:48
Total Bilirubin 0.3 mg/dl (0.2-1.3) 05/16/24 06:41
AST 23 U/L (14-36) 05/16/24 06:41
ALT 17 U/L (0-35) 05/16/24 06:41
Alkaline Phosphatase 100 U/L (38-126) 05/16/24 06:41
Most recent labs reviewed.
Micro Results:
05/15/24 16:41 Wound Culture - Preliminary
Ulcer Proteus mirabilis
Enterococcus species
Gram Stain - Preliminary
05/16/24 04:08 MRSA Screen - Final
Nose No Methicillin Resistant Staphylococcus aureus isolated.
X-ray hip-05/11/2024-
1. Large soft tissue wounds lateral to the greater trochanters of both proximal femurs.
2. No radiographic evidence for acute osteomyelitis.
3. Previous ORIF of a right proximal femoral fracture with a short stem gamma nail.
4. Diffuse bone demineralization.
5. Severe right-sided facet joint arthrosis at L4/L5 and L5/S1.
Gram stain from wound culture-few gram-positive cocci, many gram-negative rods, few gram-positive rods.
[2024-05-19 20:38] VITALS: BP 114/64
[2024-05-19] MEDS: ROXICODONE 5 MG PO (20:39)
[2024-05-19] MEDS: DAKIN'S SOLUTION 0.125% 1/4 STRENGTH 473 ML TOPICAL (20:40)
[2024-05-19] MEDS: ATIVAN 1 MG PO (22:01)
[2024-05-19 22:03] VITALS: BP 115/65
[2024-05-19 23:51] VITALS: BP 111/72
[2024-05-20] MEDS: D5LR 1000 IV (03:26)
[2024-05-20] MEDS: D5LR IV (03:26)
[2024-05-20 07:10] VITALS: BP 115/70
[2024-05-20] MEDS: DUONEB INH ×2 (07:28→20:09)
[2024-05-20 07:48] LABS: % Basophils 0.7 % (0-2); % Eosinophils 1.5 % (0-6); % Immature Granulocytes 0.8 % (0-0.5); % Lymphocytes 13.4 % (20.5-51.1); % Monocytes 9.5 % (1.7-9.3); % Neutrophils 74.1 % (42.2-75.2); Absolute Basophils 0.1 10^3/uL (0-0.2); Absolute Eosinophils 0.1 10^3/uL (0-0.7); Absolute Immature Granulocytes 0.1 10^3/uL (0-0.05); Absolute Monocytes 0.7 10^3/uL (0.1-0.6); Absolute Neutrophils 5.6 10^3/uL (1.4-6.5); Hematocrit 30.3 % (37.0-47.0); Mean Corpuscular Hgb 27.9 pg (27.0-31.0); Mean Corpuscular Volume 84.6 fL (81.0-99.0); Mean Platelet Volume 9.3 fL (7.4-10.4); Nucleated Red Blood Cells % 0 %; Platelet Count 612 10^3/uL (130-400); Red Blood Cell Count 3.58 10^6/uL (4.20-5.40); Red Cell Dist. Width 12.7 % (11.5-14.5); White Blood Cell Count 7.5 10^3/uL (4.8-10.8)
[2024-05-20 08:11] LABS: Blood Urea Nitrogen 6 mg/dl (7-17); Calcium 9.1 mg/dl (8.4-10.2); Carbon Dioxide 31 mmol/L (22-30); Chloride 97 mmol/L (98-107); Estimated Creatinine Clearance 41 ml/min; Glucose 93 mg/dl (70-99); Sodium 139 mmol/L (135-145); eGFR > 60.00
[2024-05-20] MEDS: HEPARIN 5000 UNITS SC ×2 (08:52→19:59)
[2024-05-20] MEDS: PROZAC 20 MG PO (08:52)
[2024-05-20] MEDS: ATIVAN 1 MG PO ×2 (08:52→22:19)
[2024-05-20] MEDS: NORVASC 10 MG PO (08:52)
[2024-05-20] MEDS: SENOKOT 17.2 MG PO ×2 (08:52→19:59)
[2024-05-20] MEDS: NICODERM TRANSDERMAL 7 MG TRANSDERM (08:52)
[2024-05-20] MEDS: SANTYL OINTMENT 1 APPLIC TOPICAL ×2 (08:53→19:58)
[2024-05-20] MEDS: DAKIN'S SOLUTION 0.125% 1/4 STRENGTH 473 ML TOPICAL ×2 (08:53→19:59)
[2024-05-20] MEDS: OSCAL CAL 500 500 MG PO (08:54)
[2024-05-20] MEDS: KCL 270 MEQ IV (08:54)
[2024-05-20] MEDS: STERILE WATER FOR INJECTION IV (10:53)
--- NOTE | 2024-05-20 10:53 | W.PN.HOSP.TC ---
Today's Communication/Plan
-
monitor off abx
speech eval
wean o2
SNF
replete K
Assessment / Plan
Assessment / Plan
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
-Blood culture neg so far
-wound culture expected with polymicrobial.
-Vancomycin/cefepime and flagyl completed course per infectious disease.
-s/p sharp excisional debridement b/l greater trochanteric pressure ulcers on 05/18
-wound care following
-Pain control.
-OR finding noted.
-Significantly low chance of wound healing due to bedbound status. Explained to patient and patient daughter.
-ID for abx management as pt with MS/Chronic wound. No further antibiotics per infectious disease.
Multiple sclerosis bedbound at baseline/paraplegic
-not on any group home medication
-PT/OT
Dysphagia likely 2/2 MS vs. deconditioning vs. chronic aspiration
-Started on IDDS4 with mildly thick liquids.
Acute hypoxic respiratory insufficiency likely secondary to aspiration pneumonia/pneumonitis
-started on modified diet.
-wean o2 as tolerated.
Essential hypertension
-Cont norvasc. BP controlled.
COPD
-Continue DuoNebs
Active smoker
-Nicotine patch
-counseled on cessation and significant delay in wound healing if continues to smoke.
History of aspiration with chronic cough
Anxiety/depression
-Continue fluoxetine
-Continue Ativan takes bid. PDMP reviewed.
Severe Protein calorie malnutrition likely due to chronic illness
-Dietary eval.
-liberalize diet once can tolerat po
Hypokalemia
-replete/monitor
DNR/DNI
DVT prophylaxis�heparin
Dispo-SNF on DC. CM Aware. await placement.
exterminator termite prognosis poor
Updated daughter over the phone in details on 05/18 and 05/19. Discussed hospitalization/management so far. Did recommend hospice however seems not interested at this point. May need to reintroduce depending on how patient does with swallow eval.
Anticipated Discharge: > 48 hours
Subjective/Interval History
-
Date of Service: May 20, 2024
anxious this morning
Objective Data
-
Labs:
Laboratory Results
05/20/24
06:09
WBC 7.5
Hgb 10.0 L
Hct 30.3 L
Plt Count 612 H
Sodium 139
Potassium 3.0 L
Chloride 97 L
Carbon Dioxide 31 H
BUN 6 L
Creatinine 0.4 L
Glucose 93
Calcium 9.1
Vital Signs:
Vital Signs
Temp Pulse Resp BP Pulse Ox
98.4 F 93 16 115/70 91
05/20/24 07:10 05/20/24 07:10 05/20/24 07:10 05/20/24 07:10 05/20/24 07:10
I&O
05/19/24 05/20/24 05/21/24
06:59 06:59 06:59
Intake Total 1280 / 1280 1240 / 1240
Output Total 300 / 300
Balance 1280 / 1280 940 / 940
Physical Exam
-
General: Appears Chronically Ill and Cachectic
HEENT: Normocephalic, Atraumatic and Moist Mucous Membranes
Respiratory: Clear to Auscultation
Cardiac: Regular Rhythm and S1/S2; Negative Murmur, Rub or Gallop
GI: Soft, Nontender, Nondistended and Normal Bowel Sounds; Negative Organomegaly
Rectal: Deferred by Provider
Musculoskeletal: No Clubbing, No Cyanosis and No Edema
Skin: Other (hip wound ulcer noted ); Negative Rash
Neuro: Awake, No Motor Deficits and Nonfocal/Grossly Intact
Psych: Anxious
Data Reviewed
-
Total Time Spent with Patient (in minutes): 56
--- NOTE | 2024-05-20 11:22 | PTCARENOTE ---
pt with prior infiltrate to r wrist area, resolved. pt reports no pain. no edema, no redness noted. pt resting
[2024-05-20 15:05] VITALS: BP 120/72
--- NOTE | 2024-05-20 16:48 | PTOTSP ---
ST CONSULT
Chart reviewed. Chart from [facility] reviewed. Pt's VFSS was completed in January of 2024 during which time pt was recommended for NPO + PEG with dysphagia tx vs comfort feeds. Pt and family opted for comfort feeds at that time,
understanding the associated risks. Given that pt has been rehospitalized for an unrelated medical condition, would continue with previous plan of care and continue with comfort feeds that were being followed at home. No skilled THERAPEUTIC MASSAGE TECHNICIAN services deemed
appropriate at this time. THERAPEUTIC MASSAGE TECHNICIAN to sign off at this time.
[2024-05-20] MEDS: ROXICODONE 5 MG PO (20:31)
[2024-05-20 23:30] VITALS: BP 135/82
--- NOTE | 2024-05-21 06:49 | W.PN.HOSP.TC ---
Today's Communication/Plan
-
IVF LR
encourage oral intake
Hospice Eval
Assessment / Plan
Assessment / Plan
Physical Exam
General: Appears Chronically Ill and Cachectic
HEENT: Normocephalic, Atraumatic and Moist Mucous Membranes
Respiratory: Clear to Auscultation
Cardiac: Regular Rhythm and S1/S2; Negative Murmur, Rub or Gallop
GI: Soft, Nontender, Nondistended and Normal Bowel Sounds; Negative Organomegaly
Musculoskeletal: No Clubbing, No Cyanosis and No Edema
Skin: Other (hip wound ulcer noted ); Negative Rash
Neuro: AOx2 disoriented to time
Psych: Calm cooperative
78F MS paraplegia bedbound for years HTN COPD Tobacco use anxiety depression here for infected decubitus ulcer.
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
-Blood culture neg so far
-wound culture expected with polymicrobial.
-Vancomycin/cefepime and flagyl completed course per infectious disease.
-s/p sharp excisional debridement b/l greater trochanteric pressure ulcers on 05/18
-wound care following
-Pain control.
-OR finding noted.
-Significantly low chance of wound healing due to bedbound status. Explained to patient and patient daughter.
-ID for abx management as pt with MS/Chronic wound. completed antibiotics as per infectious disease.
Multiple sclerosis bedbound at baseline/paraplegic
-not on any residential medication
-PT/OT
Dysphagia likely 2/2 MS vs. deconditioning vs. chronic aspiration
-Started on IDDS4 with mildly thick liquids.
Acute hypoxic respiratory insufficiency likely secondary to aspiration pneumonia/pneumonitis
-started on modified diet.
-wean o2 as tolerated.
Essential hypertension
-Cont norvasc. BP controlled.
COPD
-Continue DuoNebs
Active smoker
-Nicotine patch
-counseled on cessation and significant delay in wound healing if continues to smoke.
History of aspiration with chronic cough
Anxiety/depression
-Continue fluoxetine
-Continue Ativan takes bid. PDMP reviewed.
Severe Protein calorie malnutrition likely due to chronic illness
-Dietary eval.
-liberalize diet once can tolerat po
Hypokalemia
-replete/monitor
-IVF LR started
DNR/DNI
DVT prophylaxis�heparin
[facility] prognosis poor, Hospice appropriate
Discussed with daughter ROSINA, also named Catalina, who expressed interested in learning more with regards to Hospice. Hospice eval requested accordingly.
I spent a total of 50 minutes with the patient or on the floor. More than 50% of this time involved counseling and coordination of care.
Anticipated Discharge: 24 - 48 hours
Subjective/Interval History
-
Date of Service: May 21, 2024
reporting 8/10 back pain. otherwise no acute distress. Reports poor appetite. AOx2 disoriented to time.
Objective Data
-
Vital Signs:
Vital Signs
Temp Pulse Resp BP Pulse Ox
98.1 F 94 16 135/82 95
05/20/24 23:30 05/20/24 23:30 05/20/24 23:30 05/20/24 23:30 05/20/24 23:43
I&O
05/19/24 05/20/24 05/21/24
06:59 06:59 06:59
Intake Total 1280 / 1280 1240 / 1240 1350 / 1350
Output Total 300 / 300 1550 / 1550
Balance 1280 / 1280 940 / 940 -200 / -200
[2024-05-21 07:46] VITALS: BP 124/76
[2024-05-21] MEDS: DUONEB INH (07:54)
[2024-05-21] MEDS: NORVASC 10 MG PO (08:43)
[2024-05-21] MEDS: PROZAC 20 MG PO (08:44)
[2024-05-21] MEDS: OSCAL CAL 500 500 MG PO (08:44)
[2024-05-21] MEDS: SENOKOT 17.2 MG PO ×2 (08:44→21:04)
[2024-05-21] MEDS: HEPARIN 5000 UNITS SC ×2 (08:48→21:06)
[2024-05-21] MEDS: NICODERM TRANSDERMAL 7 MG TRANSDERM (08:49)
[2024-05-21] MEDS: DAKIN'S SOLUTION 0.125% 1/4 STRENGTH 473 ML TOPICAL ×2 (08:50→21:06)
[2024-05-21] MEDS: SANTYL OINTMENT 1 APPLIC TOPICAL ×2 (08:51→21:03)
--- NOTE | 2024-05-21 11:17 | CM ---
Addendum entered by Amrita Diana 05/21/24 13:10:
Case management consult completed for hospice.
Reviewed options with daughter Catalina who prefers Hospice
[facility] account liaison hospice gila texted.
Original Note:
Spoke with raf Arnold [phone]
Added referrals into [facility], [facility], [facility], [facility]
She also stated would like speak with physician & get information regarding hospice.
tt Dr. Seaman
PLAN: SNF/LTC - ? hospice
[2024-05-21 11:27] VITALS: BP 104/67; BP 122/87; PULSE 106; O2SAT 91
[2024-05-21 11:28] VITALS: BP 104/67; BP 122/87
[2024-05-21] MEDS: ATIVAN 1 MG PO ×2 (12:36→21:04)
[2024-05-21] MEDS: ROXICODONE 5 MG PO ×2 (12:37→21:04)
[2024-05-21 15:00] VITALS: BP 120/84
--- NOTE | 2024-05-21 15:14 | PTCARENOTE ---
Attempted to wean this pt off of o2. pt's o2 at 89% on 1L nc. pt placed back on 2L nc, o2 now at 92%.
[2024-05-21] MEDS: LR 1000 IV (15:31)
--- NOTE | 2024-05-21 16:45 | HOSPNOTE ---
Spoke with daughter she is in agreement that the patient can not go home and will need placement with hospice services. Will follow up tomorrow.
--- NOTE | 2024-05-21 16:51 | W.PN.ID1 ---
Date of Service
Date of Service: May 21, 2024
Today's Communication
- completed a course of vanc/cefepime/metronidazole for SSTI
- patient profoundly cachectic with significant risk for ongoing nonhealing; additionally given her inability to consistently offload the wounds, she is unlikely to be a candidate for reconstruction or ostomy. Recommend hospice however she and
family have not been willing to pursue that at this time. Alternatively follow up with plastic surgery though I doubt she is a candidate.
ID service will no longer actively follow this patient please recall for further questions
Assessment / Plan
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
Left: exposed tendon and humerus and muscle
Right: exposed fascia, muscle, tender
note h/o ORIF on the right - however, no exposed hardwear at this time
S/p R THR
MS with Functional paraplegia
Emphysema
Profound Cachexia
- CX: proteus and e faecalis
- completed a course of vanc/cefepime/metronidazole for SSTI
- patient profoundly cachectic with significant risk for ongoing nonhealing; additionally given her inability to consistently offload the wounds, she is unlikely to be a candidate for reconstruction or ostomy. Recommend hospice however she and
family have not been willing to pursue that at this time. Alternatively follow up with plastic surgery though I doubt she is a candidate.
ID service will no longer actively follow this patient please recall for further questions
Chief Complaint
-: Other (foul smelling purulent draining pressure ulcers X 2 weeks.)
Subjective / Review of Systems
afebrile
bp stable
no events overnight
Vital Signs / Physical Exam
Vital Signs
Vital Signs
Temp Pulse Resp BP Pulse Ox
97.8 F 111 16 120/84 92
05/21/24 15:00 05/21/24 15:00 05/21/24 15:00 05/21/24 15:00 05/21/24 15:00
Physical Exam
Constitutional: No Acute Distress
Cardiovascular: Regular Rate
Pulmonary: Symmetric
Gastrointestinal: Non Distended
Neurological: Awake
Objective Data
Lab Data
Lab Results
05/20/24 06:09
05/20/24 06:09
Estimated Creat Clear 41 ml/min 05/20/24 06:09
Total Bilirubin 0.3 mg/dl (0.2-1.3) 05/16/24 06:41
AST 23 U/L (14-36) 05/16/24 06:41
ALT 17 U/L (0-35) 05/16/24 06:41
Alkaline Phosphatase 100 U/L (38-126) 05/16/24 06:41
Most recent labs reviewed.
Micro Results:
05/15/24 16:41 Wound Culture - Final
Ulcer Proteus mirabilis
Enterococcus faecalis
Gram Stain - Final
05/16/24 04:08 MRSA Screen - Final
Nose No Methicillin Resistant Staphylococcus aureus isolated.
X-ray hip-05/11/2024-
1. Large soft tissue wounds lateral to the greater trochanters of both proximal femurs.
2. No radiographic evidence for acute osteomyelitis.
3. Previous ORIF of a right proximal femoral fracture with a short stem gamma nail.
4. Diffuse bone demineralization.
5. Severe right-sided facet joint arthrosis at L4/L5 and L5/S1.
Gram stain from wound culture-few gram-positive cocci, many gram-negative rods, few gram-positive rods.
[2024-05-21 23:00] VITALS: BP 112/73
[2024-05-22] MEDS: LR 1000 IV (01:42)
[2024-05-22 07:04] LABS: Blood Urea Nitrogen 13 mg/dl (7-17); Calcium 9.4 mg/dl (8.4-10.2); Carbon Dioxide 30 mmol/L (22-30); Chloride 100 mmol/L (98-107); Estimated Creatinine Clearance 41 ml/min; Glucose 81 mg/dl (70-99); Potassium 3.8 mmol/L (3.5-5.1); Sodium 138 mmol/L (135-145); eGFR > 60.00
--- NOTE | 2024-05-22 07:47 | W.PN.HOSP.TC ---
Today's Communication/Plan
-
Monitor
Dispo planning hospice evaluation
Assessment / Plan
Assessment / Plan
Physical Exam
General: Appears Chronically Ill and Cachectic
HEENT: Normocephalic, Atraumatic and Moist Mucous Membranes
Respiratory: Clear to Auscultation
Cardiac: Regular Rhythm and S1/S2; Negative Murmur, Rub or Gallop
GI: Soft, Nontender, Nondistended and Normal Bowel Sounds; Negative Organomegaly
Musculoskeletal: No Clubbing, No Cyanosis and No Edema
Skin: Other (hip wound ulcer noted ); Negative Rash
Neuro: AOx2 disoriented to time
Psych: Calm cooperative
78F MS paraplegia bedbound for years HTN COPD Tobacco use anxiety depression here for infected decubitus ulcer.
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
-Blood culture neg so far
-wound culture expected with polymicrobial.
-Vancomycin/cefepime and flagyl completed course per infectious disease.
-s/p sharp excisional debridement b/l greater trochanteric pressure ulcers on 05/18
-wound care following
-Pain control.
-OR finding noted.
-Significantly low chance of wound healing due to bedbound status. Explained to patient and patient daughter.
-ID for abx management as pt with MS/Chronic wound. completed antibiotics as per infectious disease.
Multiple sclerosis bedbound at baseline/paraplegic
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
-PT/OT
Dysphagia likely 2/2 MS vs. deconditioning vs. chronic aspiration
-Started on IDDS4 with mildly thick liquids.
Acute hypoxic respiratory insufficiency likely secondary to aspiration pneumonia/pneumonitis
-started on modified diet.
-wean o2 as tolerated.
Essential hypertension
-Cont norvasc. BP controlled.
COPD
-Continue DuoNebs
Active smoker
-Nicotine patch
-counseled on cessation and significant delay in wound healing if continues to smoke.
History of aspiration with chronic cough
Anxiety/depression
-Continue fluoxetine
-Continue Ativan takes bid. PDMP reviewed.
Severe Protein calorie malnutrition likely due to chronic illness
-Dietary eval.
-liberalize diet once can tolerat po
Hypokalemia resolved
-replete/monitor as necessary
DNR/DNI
DVT prophylaxis�heparin
termite treater helper prognosis poor, Hospice appropriate
Discussed with daughter ROSINA, also named Catalina, who expressed interested in learning more with regards to Hospice. Hospice eval requested accordingly.
I spent a total of 40 minutes with the patient or on the floor. More than 50% of this time involved counseling and coordination of care.
Anticipated Discharge: Within 24 hours
Subjective/Interval History
-
Date of Service: May 22, 2024
No acute distress. Appears comfortable at this time. Tolerating diet.
Objective Data
-
Labs:
Laboratory Results
05/22/24
05:19
Sodium 138
Potassium 3.8 D
Chloride 100
Carbon Dioxide 30
BUN 13
Creatinine 0.4 L
Glucose 81
Calcium 9.4
Vital Signs:
Vital Signs
Temp Pulse Resp BP Pulse Ox
97.6 F 85 16 112/73 93
05/21/24 23:00 05/21/24 23:00 05/21/24 23:00 05/21/24 23:00 05/21/24 23:39
I&O
05/21/24 05/22/24 05/23/24
06:59 06:59 06:59
Intake Total 1350 / 1350 710 / 710
Output Total 1550 / 1550 360 / 360
Balance -200 / -200 350 / 350
[2024-05-22 07:48] VITALS: BP 127/84
[2024-05-22] MEDS: NORVASC 10 MG PO (07:53)
[2024-05-22] MEDS: OSCAL CAL 500 500 MG PO (07:53)
[2024-05-22] MEDS: SANTYL OINTMENT 1 APPLIC TOPICAL ×2 (07:53→21:06)
[2024-05-22] MEDS: PROZAC 20 MG PO (07:53)
[2024-05-22] MEDS: SENOKOT 17.2 MG PO (07:54)
[2024-05-22] MEDS: HEPARIN 5000 UNITS SC ×2 (07:54→21:06)
[2024-05-22] MEDS: DAKIN'S SOLUTION 0.125% 1/4 STRENGTH 473 ML TOPICAL ×2 (07:54→21:06)
[2024-05-22] MEDS: NICODERM TRANSDERMAL 7 MG TRANSDERM (07:54)
[2024-05-22] MEDS: ROXICODONE 5 MG PO ×2 (07:55→21:06)
--- NOTE | 2024-05-22 13:39 | SUR.PHASEI ---
MD made aware of patient with no documented BM this admission; patient reporting feeling the urge to have BM with no output. Patient already ordered scheduled Senokot BID, stat dose of Miralax ordered per MD this AM. Upon providing patient wound
care to B/L hips, small loose BM noted in patient's brief; patient assisted onto side by this RN and tech and encouraged to have BM, patient with output of large brown formed BM. Patient reports relief in pressure/urge, MD made aware, stat dose of
Miralax held per MD order.
--- NOTE | 2024-05-22 14:30 | STATUS ---
SITUATION:
BACKGROUND:
ASSESSMENT:
RECOMMENDATION:
--- NOTE | 2024-05-22 14:30 | CM ---
Met with patient daughter & discussed hospice options at SNF
Per daughter patient's comitted suicide in January, still working out financials.
Daughter works daytime caregiver and cannot care for patient at home, and not able to hire private duty.
Called Madelyn at [facility] which referral was sent.
Await bed availability
PLAN: Await patient decision regarding hospice.
[2024-05-22 15:05] VITALS: BP 113/75
[2024-05-22] MEDS: SENOKOT-S 1 TABLET PO (21:06)
[2024-05-22] MEDS: DESENEX/MITRAZOL/ZEASORB 1 APPLIC TOPICAL (21:06)
[2024-05-22] MEDS: ATIVAN 1 MG PO (21:49)
[2024-05-22 23:23] VITALS: BP 112/80
--- NOTE | 2024-05-23 07:15 | W.PN.HOSP.TC ---
Today's Communication/Plan
-
discharge
Assessment / Plan
Assessment / Plan
Physical Exam
General: Appears Chronically Ill and Cachectic
HEENT: Normocephalic, Atraumatic and Moist Mucous Membranes
Respiratory: Clear to Auscultation
Cardiac: Regular Rhythm and S1/S2; Negative Murmur, Rub or Gallop
GI: Soft, Nontender, Nondistended and Normal Bowel Sounds; Negative Organomegaly
Musculoskeletal: No Clubbing, No Cyanosis and No Edema
Skin: Other (hip wound ulcer noted ); Negative Rash
Neuro: AOx2 disoriented to time memory issues noted
Psych: Calm cooperative
78F MS paraplegia bedbound for years HTN COPD Tobacco use anxiety depression here for infected decubitus ulcer.
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
-Blood culture neg so far
-wound culture expected with polymicrobial.
-Vancomycin/cefepime and flagyl completed course per infectious disease.
-s/p sharp excisional debridement b/l greater trochanteric pressure ulcers on 05/18
-wound care following
-Pain control.
-OR finding noted.
-Significantly low chance of wound healing due to bedbound status.
-ID eval appreciated completed abx treatment
Multiple sclerosis bedbound at baseline/paraplegic
-not on any retirement medication
-PT/OT
Dysphagia likely 2/2 MS vs. deconditioning vs. chronic aspiration
-Started on IDDS4 with mildly thick liquids.
Acute hypoxic respiratory insufficiency likely secondary to aspiration pneumonia/pneumonitis
-started on modified diet.
-wean o2 as tolerated.
Essential hypertension
-Cont norvasc. BP controlled.
COPD
-Continue DuoNebs
Active smoker
-Nicotine patch
-counseled on cessation and significant delay in wound healing if continues to smoke.
History of aspiration with chronic cough
Anxiety/depression
-Continue fluoxetine
-Continue Ativan takes bid. PDMP reviewed.
Severe Protein calorie malnutrition likely due to chronic illness
-Dietary eval.
-liberalize diet once can tolerat po
Hypokalemia resolved
-replete/monitor as necessary
DNR/DNI
DVT prophylaxis�heparin
terminal gauger prognosis poor, Hospice appropriate, discussed with patient's daughter POA also named Catalina and diandra mgmt. Currently planned for discharge to SNF rehab with potential transition to hospice later on, daughter in agreement with plan.
Medically stable for discharge SNF rehab with outpatient follow up recommendations.
Total Time Preparing Discharge __40____ minutes including examination of the patient, summary of the hospital stay, instructions for continuing care to all relevant caregivers; and preparation of discharge records, prescriptions, and referral forms
if necessary.
Anticipated Discharge: Today
Subjective/Interval History
-
Date of Service: May 23, 2024
Seen and examined at bedside in no acute distress appears comfortable. Awake alert conversant coherent. Memory issues noted.
Objective Data
-
Vital Signs:
Vital Signs
Temp Pulse Resp BP Pulse Ox
98.3 F 98 18 112/80 93
05/22/24 23:23 05/22/24 23:23 05/22/24 23:23 05/22/24 23:23 05/23/24 00:05
I&O
05/22/24 05/23/24 05/24/24
06:59 06:59 06:59
Intake Total 710 / 710 600 / 600
Output Total 360 / 360
Balance 350 / 350 600 / 600
[2024-05-23 07:17] VITALS: BP 105/74
[2024-05-23] MEDS: OSCAL CAL 500 500 MG PO (07:48)
[2024-05-23] MEDS: ROXICODONE 5 MG PO ×2 (07:48→14:32)
[2024-05-23] MEDS: SANTYL OINTMENT 1 APPLIC TOPICAL (07:49)
[2024-05-23] MEDS: SENOKOT-S 1 TABLET PO (07:49)
[2024-05-23] MEDS: PROZAC 20 MG PO (07:49)
[2024-05-23] MEDS: NICODERM TRANSDERMAL 7 MG TRANSDERM (07:50)
[2024-05-23] MEDS: HEPARIN 5000 UNITS SC (07:50)
[2024-05-23] MEDS: DAKIN'S SOLUTION 0.125% 1/4 STRENGTH 473 ML TOPICAL (07:51)
[2024-05-23] MEDS: NORVASC 10 MG PO (07:51)
--- NOTE | 2024-05-23 08:47 | CM ---
Spoke to Madelyn at [facility] & stated has a bed available.
Discussed plan with daughter Catalina who is agreeable.
Referral updated in [facility] w/wound notes.
PLAN: [facility]
Report #: [phone]
Fax #: [phone]
--- NOTE | 2024-05-23 10:31 | HOSPNOTE ---
Spoke to Madelyn at [facility] the plan is for patient to go to [facility] on skilled and then transition to hospice. Case management aware. Will continue to follow.
--- NOTE | 2024-05-23 12:50 | W.DCSUMMARY ---
Discharge Summary
Discharge Data
Date of Admission: 05/15/24
Date of Discharge: 05/23/24
-
Pending Results: No
Discharge Plan
-
Patient Disposition: [facility]ci/SNF
Discharge Diagnosis/Procedures: Chronic Hip/sacral decubitus wound Stage IV ulcer
Multiple sclerosis bedbound at baseline/paraplegic
Dysphagia
aspiration pneumonia/pneumonitis
Acute Hypoxic Respiratory Failure requiring 2L
Essential hypertension
COPD
Tobacco Use
Anxiety/depression
Severe Protein calorie malnutrition likely due to chronic illness
Condition: Fair
Diet: Other diet
Additional Diets: Pureed Diet with nectar thick fluids
Activity: With assistance and As tolerated
Driving Restrictions: No driving
Blood Work: Please repeat CBC and BMP with a primary care provider in 1 week of discharge
Other Services: PT and OT
Activity Restrictions/Additional Instructions:
Wound Care Instructions
Bilateral hip wounds--clean with 1/4 strength Dakin's solution, miconazole powder prn yeasty red surrounding skin followed by no sting barrier wipe/ointment, pack wound with 1/4 strength Dakins' moistened gauze, cover with dry gauze then ABD pad or
silicone border foam, change bid and prn drainage.
Air mattress
Turning schedule
Elevate heels off bed: soft heel relief boots as tolerated; air chair cushion under heels/boots.
Follow up at wound care center call for an appointment.

Please follow up with primary care provider at facility in 1 week of discharge and surgeon in 2-4 weeks of discharge.
Nicotine patches have been prescribed to help with smoking cessation
As needed oxycodone have been prescribed for severe pain, 5 day supply.
Please take medications as prescribed/recommended and follow up with primary care provider and/or other healthcare provider involved in your care for refills and/or other healthcare provider involved in your care for refills and/or further
adjustment to your medication regimen as necessary.
Referrals:
Leeryo Bellamy MD [Active] - in two to four weeks
PRIVATE,PHYSICIAN [Family Provider] -
Prescriptions:
New
Dakin's Solution 0.125 % Solution
1 applic topical BID Qty: 473 0RF
nicotine 7 mg/24 hr Patch 24 Hour
7 mg transdermal DAILY 7 Days Qty: 7 0RF
oxycodone 5 mg Tablet
5 mg PO BIDPRN PRN (Reason: severe pain) 5 Days Qty: 10 0RF
miconazole nitrate [Miconazorb AF] 2 % Powder
1 applic topical BIDPRN PRN (Reason: yeasty red skin) Qty: 85 0RF
Continued
sennosides [senna] 8.6 mg Tablet
17.2 mg PO BID
ipratropium-albuterol 0.5 mg-3 mg(2.5 mg base)/3 mL Solution For Nebulization
3 ml INHALATION R DAILY
calcium carbonate [Calcium 600] 600 mg calcium (1,500 mg) Tablet
600 mg PO DAILY
amlodipine 10 mg Tablet
10 mg PO DAILY
Santyl 250 unit/gram Ointment
1 applic TOPICAL BID
fluoxetine 20 mg Capsule
20 mg PO DAILY
lorazepam 1 mg Tablet
1 mg PO HS 5 Days Qty: 5 0RF
Patient Comments:
05/15/24: last filled 02/07/24 for 90 tablets
ibuprofen [Advil] 200 mg Tablet
400 mg PO Q6HPRN PRN (Reason: mild moderate pain) Qty: 0 0RF
Discharge Orders:
Discharge Patient (As Directed); Ordered 05/23/24
Ordered By: Daina Seaman
Discharge Date and Time
Print Language: WOLOF
[2024-05-23 14:29] VITALS: BP 108/70
[2024-05-23] MEDS: FLUAD (65 yr+) 2024-2025 FORMULA 0.5 ML IM (15:20)
[2024-05-23 17:24] VITALS: BP 110/69
== END 2024-05-23 18:45 | DRG 579 ==
LOC: 2 NORTH 20:09
PROVIDERS: Anesthesiology; Hospitalist; Surgery; ADMITTING PHYSICIAN Hospitalist; ATTENDING PHYSICIAN Internal Medicine; CONSULT PHYSICIAN Student in an Organized Health Care Education/Training Program; CONSULT PHYSICIAN Surgery; EMERGENCY PHYSICIAN Student in an Organized Health Care Education/Training Program
PROC: 5A0935A Assistance with Respiratory Ventilation, Less than 24 Consecutive Hours, High Flow/Velocity Cannula (ICD-10-PCS; 2024-05-16)
PROC: 0KBN0ZZ Excision of Right Hip Muscle, Open Approach (ICD-10-PCS; 2024-05-17)
PROC: 0KBP0ZZ Excision of Left Hip Muscle, Open Approach (ICD-10-PCS; 2024-05-17)
DX: L89.214 Pressure ulcer of right hip, stage 4 (principal); E43 Unspecified severe protein-calorie malnutrition; J69.0 Pneumonitis due to inhalation of food and vomit; J96.01 Acute respiratory failure with hypoxia; Z68.1 Body mass index [BMI] 19.9 or less, adult; I96 Gangrene, not elsewhere classified; R64 Cachexia; L89.224 Pressure ulcer of left hip, stage 4; Z66 Do not resuscitate; D64.9 Anemia, unspecified; F32.A Depression, unspecified; G35 Multiple sclerosis; I10 Essential (primary) hypertension; J44.9 Chronic obstructive pulmonary disease, unspecified; L89.151 Pressure ulcer of sacral region, stage 1; F44.4 Conversion disorder with motor symptom or deficit; R54 Age-related physical debility; D75.838 Other thrombocytosis; F17.210 Nicotine dependence, cigarettes, uncomplicated; F41.9 Anxiety disorder, unspecified; R13.10 Dysphagia, unspecified; Z74.01 Bed confinement status; Z79.899 Other long term (current) drug therapy
CPT/HCPCS: 71045; 73521; 80048; 80053; 80202; 85025; 86803; 87070; 87071; 87077; 87186; 87205; 90662; 92526; 92610; 94640; 96365; 96375; 97162; 97167; 97530; 99285; 99406; G0008